=== PATIENT | female | born 1965 | race Hispanic/Latino ===

== ENCOUNTER 2024-08-12 12:50 | Emergency (ER) | payer BC, SELFPAY ==
--- OUTSIDE RECORDS SUMMARY | 2024-08-12 12:57 | XMS REPORT | Continuity of Care Document ---
Author Name Unknown Address [address] [facility] [place] [address] [facility] Address [address] [facility] [address] [place] [address] Care Team Providers Care Sfdc Architect Name Role Phone Gadiel Jenkins MD Primary Care Physician ESTEBAN SUAREZ Attending Clinician Unavailable SARIKA COREAS Attending Clinician Unavailable LAB90 Attending Clinician Unavailable ADELINE ALLEN Attending Clinician Unavailable KAROLYN HERRING Attending Clinician Unavailable MD RHODA Attending Clinician Unavail le Doctor Unassigned, Salome Attending Clinician U navailable JAZMÍN LORA Attending Clinician Unavailable ONDINA BONE Attending Clinician Unavailable FLOYD AREVALO Attending Clinician Unavailable CASSY REEVES Attending Clinician Unavailable LOUISA ANGEL Attending Clinician Unavailable [email or web address] Attending Clinician Unavaila ble RADIOLOGY Attending Clinician Unavailable Radiology Attending Clinician Unavailable Doctor Unassigned, Salome Attending Clinician U navailable GEOFF MCGOVERN Attending Clinician Unavailable Geoff Mcgovern MD Attending Clinician [phone] Annie Dawn MD Attending Clinician GARTH Attending Clinician Unavailable CHANEL ADLER Attending Clinician Unavailable GARCIA WARD Attending Clinician Unavailable Keisha Brennan MD Attending Clinician ANNIE DAWN Attending Clinician Unavailable Nurse, Shady Fam Attending Clinician Unavailable KEISHA BRENNAN Attending Clinician UnavailShady [facility] Main Attending Clinician Unavailabl e [email or web address]_S Admitting Clinician Unavaila KEISHA Recinos A Admitting Clinician Unavaila GEOFF Mederos Admitting Clinician Unavailable GARTH Admitting Clinician Unavailable Payers Payer Name Policy Type Policy Number Effective Date Expirati on Date Source [employer]WORK [id number] 2022 00:00:00 [employer] MP [employer] [employer] 5 O 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 87 ON 9 [id number] 2023 00:00:00 [employer] 2 [id number] 2022 00:00:00 Problems Condition Name Condition Details Condition Category Status Onset Date Resolution Date Last Treatment Date Treating Clinician Comments Source DM type 2 with diabetic mixed hyperlipid emia (multi HCC) DM type 2 with diabetic mixed hyperlipid emia (multi HCC) Disease Active 05-01 00:00: 00 Queenie Seybold - Externa l History of colon polyps History of colon polyps Disease Active 05-01 00:00: 00 Queenie Seybold - Externa l History of diverticul itis History of diverticul itis Disease Active 05-01 00:00: 00 Queenie Seybold - Externa l 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 Disease Active 11-25 00:00: 00 Queenie Seybold - Externa l Anxiety Anxiety Disease Active 11-25 00:00: 00 Queenie Seybold - Externa l Mixed hyperlipid emia Mixed hyperlipid emia Disease Active 11-25 00:00: 00 Queenie Seybold - Externa l Well adult exam Well adult exam Disease Active 08-25 00:00: 00 Queenie Seybold - Externa l Prediabete s Prediabete s Disease Active 08-25 00:00: 00 Queenie Seybold - Externa l Arthralgia of both hands Arthralgia of both hands Disease Active 07-24 00:00: 00 Queenie Rodriguezjusticephyllis - Externa l Class 1 obesity due to excess calories without serious comorbidit y with body mass index (BMI) of 33.0 to 33.9 in adult Class 1 obesity due to excess calories without serious comorbidit y with body mass index (BMI) of 33.0 to 33.9 in adult Disease Active 07-24 00:00: 00 Queenie Lisa - Externa l Acquired hypothyroi dism Acquired hypothyroi dism Disease Active 07-24 00:00: 00 Queenie Sejusticeold - Externa l Class 1 obesity due to excess calories without serious comorbidit y with body mass index (BMI) of 33.0 to 33.9 in adult Class 1 obesity due to excess calories without serious comorbidit y with body mass index (BMI) of 33.0 to 33.9 in adult Disease Active 07-24 00:00: 00 Queenie Maria L - Externa l Gastroesop hageal reflux disease without esophagiti s Gastroesop hageal reflux disease without esophagiti s Disease Active 07-24 00:00: 00 Queenie Maria L - Externa l Obesity (BMI 30-39.9) Obesity (BMI 30-39.9) Disease Active 2018-04 00:00: 00 [facility] Type 2 diabetes mellitus without complicati on Type 2 diabetes mellitus without complicati on Disease Active 2018-04 00:00: 00 Overview: Formattin g of this note might be different from the original. Per Endocrino logy note 03/01/2019 [facility] Tinea pedis of both feet Tinea pedis of both feet Disease Active 2018-04 00:00: 00 [facility] Abnormal liver function tests Abnormal liver function tests Disease Active 2018-04 00:00: 00 [facility] Elevated lipase Elevated lipase Disease Active 2018-04 00:00: 00 [facility] Need for hepatitis A and B vaccinatio n Need for hepatitis A and B vaccinatio n Disease Active 2018-04 00:00: 00 [facility] Medullary sponge kidney Medullary sponge kidney Disease Active 2018-04 0 00:00: 00 [facility] Fatty liver Fatty liver Disease Active 2018-04 0 00:00: 00 [facility] Anxiety Anxiety Disease Active 24 00:00: 00 [facility] Warwick's disease Dick's disease Disease Active 18 00:00: 00 [facility] Hyperchole sterolemia Hyperchole sterolemia Disease Active 2017-04 00:00: 00 [facility] Essential hypertensi on Essential hypertensi on Disease Active 06-11 00:00: 00 [facility] Calculus of both kidneys Calculus of both kidneys Disease Active 06-11 00:00: 00 [facility] Depression Depression Disease Active 2014-04 00:00: 00 [facility] Hypothyroi dism due to acquired atrophy of thyroid Hypothyroi dism due to acquired atrophy of thyroid Disease Active 2014-04 00:00: 00 [facility] Chronic depression Chronic depression Disease Active 2014-04 00:00: 00 [facility] Diabetes Problem Active [facility] Anxiety Anxiety Problem Active [facility] Memory problem Memory problem Problem Active [facility] HTN (hypertens ion) HTN (hypertens ion) Problem Active [facility] Dry mouth Dry mouth Problem Active Com [facility] Primary insomnia Primary insomnia Problem Active [facility] Depression with anxiety Depression with anxiety Problem Active [facility] High cholestero l High cholestero l Problem Active [facility] Kidney stone Kidney stone Problem Active [facility] Stress Stress Problem Active [facility] Acute pain of right knee Acute pain of right knee Problem Active [facility] Routine gynecologi antonio examinatio n Routine gynecologi antonio examinatio n Problem Active [facility] 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 Problem Active [facility] Osteoporos is screening Osteoporos is screening Problem Active [facility] Hemorrhoid s, unspecifie d hemorrhoid type Hemorrhoid s, unspecifie d hemorrhoid type Problem Active [facility] Acquired absence of both cervix and uterus Acquired absence of both cervix and uterus Problem Active [facility] Constipati on, unspecifie d constipati on type Constipati on, unspecifie d constipati on type Problem Active [facility] Concern about breast cancer in female without diagnosis Concern about breast cancer in female without diagnosis Problem Active [facility] Somnolence , daytime Somnolence , daytime Problem Active [facility] Prediabete s Prediabete s Problem Active [facility] Acquired hypothyroi dism Acquired hypothyroi dism Problem Active [facility] Chronic fatigue Chronic fatigue Problem Active [facility] Pain of both breasts Pain of both breasts Problem Active [facility] Prediabete s Prediabete s Disease Resolve d 2018-04 0-30 00:00: 00 2019-03-17 00:00:00 2019-03-17 19:06:54 [facility] Allergies, Adverse Reactions, Alerts Allergy Name Allergy Type Status Severity Reaction(s) Onset Date Inactive Date Treating Clinician Comments Source NO KNOWN ALLERGIE S Drug Class Active [facility] Social History Social Habit Start Date Stop Date Quantity Comments Source ASSERTION Not Queenie Lisa - External History of Occupation Queenie Lisa - External Gender identity [facility] Sexual orientation U [facility] Tobacco use and exposure 2024-01-08 00:00:00 2024-01-08 00:00:00 Smokeless tobacco non-user Queenie Lisa - External Alcohol intake 2023-07-31 00:00:00 2023-07-31 00:00:00 Lifetime non-drinker (finding) Queenie Lisa - External Education 2022-07-24 00:00:00 2022-07-24 00:00:00 15 Queenie Lisa - External Sex 2022-07-01 16:27:54 2022-07-01 16:27:54 Female (finding) Queenie Rodriguezjusticephyllis - External History of Social function 2019-11-27 00:00:00 2019-11-27 00:00:00 [facility] Alcoholic beverage intake 2016-07-15 00:00:00 2016-07-15 00:00:00 0 /d [facility] Sex assigned at 1965 00:00:00 1965 00:00:00 Queenie Senatali - External Smoking Status Start Date Stop Date Source Never smoked tobacco Queenie Senatali - External Medications Ordered Medication Name Filled Medication Name Start Date Stop Date Current Medication? Ordering Clinician Indication Dosage Frequency Signature (SIG) Comments Components Source Dulaglutide (Trulicity) 4.5 MG/0.5ML subcutaneou s Solution Auto-inject or 08-05 00:00: 00 Yes [id number] 3 4.5mg Q1W Inject 4.5 mg into the skin once a week. Queenie abbott Trazodone HCl 50 MG oral Tablet 08-05 00:00: 00 Yes [id number] 50mg QD Take 1 tablet (50 mg total) by mouth nightly. Queenie abbott FLUoxetine HCl 60 MG oral Tablet 08-05 00:00: 00 Yes [id number] 60mg QD Take 60 mg by mouth daily. Queenie abbott Phentermine HCl 37.5 MG oral Tablet 08-05 00:00: 00 Yes [id number] 37.5mg Take 1 tablet (37.5 mg total) by mouth every morning (before breakfast) . Queenie abbott Meloxicam 15 MG oral Tablet 07-13 00:00: 00 Yes [id number] 15mg QD TAKE 1 TABLET BY MOUTH EVERY DAY NEEDED FOR PAIN Queenie abbott Levothyroxi ne Sodium 100 MCG oral Tablet 07-04 00:00: 00 Yes [id number] 100ug QD TAKE 1 TABLET BY MOUTH EVERY DAY Queenie Lisa - Externa l Trulicity 3 MG/0.5ML subcutaneou s Solution Auto-inject or 06-22 00:00: 00 08-05 00:00 :00 No [id number] 3 3mg Q1W Inject 3 mg into the skin once a week. Queenie Lisa - Externa l Phentermine HCl 37.5 MG oral Tablet 06-22 00:00: 00 08-05 00:00 :00 No [id number] 37.5mg Take 1 tablet (37.5 mg total) by mouth every morning (before breakfast) . Queenie Lisa - Externa l hydroCHLORO thiazide 12.5 MG oral Capsule 06-15 00:00: 00 Yes [id number] 12.5mg QD TAKE 1 CAPSULE BY MOUTH EVERY DAY Queenie Lisa - Externa l Meloxicam 15 MG oral Tablet - 00:00: 00 Yes [id number] 15mg QD TAKE 1 TABLET BY MOUTH EVERY DAY NEEDED FOR PAIN Queenie Lisa - Externa l Meloxicam 15 MG oral Tablet 2023-04 00:00: 00 Yes [id number] 15mg QD Take 1 tablet (15 mg total) by mouth daily as needed for pain. Queenie Lisa - Externa l Phentermine HCl 37.5 MG oral Tablet 2023-04 00:00: 00 06-22 00:00 :00 No [id number] 104 37.5mg Take 1 tablet (37.5 mg total) by mouth every morning (before breakfast) . Queenie Lisa - Externa l Trulicity 4.5 MG/0.5ML subcutaneou s Solution Auto-inject or 2023-04 00:00: 00 04-08 00:00 :00 No Queenie Lisa - Externa l Meloxicam 15 MG oral Tablet 2023-04 1- 00:00: 00 04-08 00:00 :00 No [id number] 15mg QD TAKE 1 TABLET BY MOUTH EVERY DAY NEEDED FOR PAIN Queenie Lisa - Externa l Meloxicam 15 MG oral Tablet 2023-04 00:00: 00 Yes [id number] 15mg QD take 1 tablet by mouth every day as needed for pain Queenie abbott FLUTICASONE PROPIONATE, NASAL, 50 MCG/ACT nasal Suspension 01-11 00:00: 00 Yes [id number] 50ug QD Use 1 spray (50 mcg total) in each nostril daily. Queenie abbott Pseudoeph-B romphen-DM 30-2-10 MG/5ML oral Syrup 01-11 00:00: 00 02-28 00:00 :00 No [id number] 10mL Q.25D Take 10 mL by mouth 4 times daily as needed. Queenie abbott Azithromyci n 250 MG oral Tablet 01-11 00:00: 00 01-17 04:59 :00 No [id number] Take 2 tablets by mouth on day 1 then 1 tablet by mouth daily for 4 days thereafter .. Queenie abbott Dulaglutide (Trulicity) 4.5 MG/0.5ML subcutaneou s Solution Pen-injecto r 01-07 00:00: 00 Yes [id number] 3 4.5mg Q1W Inject 4.5 mg into the skin once a week. Queenie abbott hydroCHLORO thiazide 12.5 MG oral Capsule 01-07 00:00: 00 Yes [id number] 12.5mg QD Take 1 capsule (12.5 mg total) by mouth daily. Queenie abbott Fluoxetine HCl 40 MG oral Capsule 01-07 00:00: 00 08-05 00:00 :00 No [id number] 40mg QD Take 1 capsule (40 mg total) by mouth daily. Queenie abbott Dulaglutide (Trulicity) 4.5 MG/0.5ML subcutaneou s Solution Pen-injecto r 01-07 00:00: 00 06-22 00:00 :00 No [id number] 3 4.5mg Q1W Inject 4.5 mg into the skin once a week. Queenie abbott Phentermine HCl 37.5 MG oral Tablet 01-07 00:00: 00 02-28 00:00 :00 No [id number] 104 18.75mg Take 0.5 tablets (18.75 mg total) by mouth every morning (before breakfast) . Queenie abbott Meloxicam 15 MG oral Tablet 12-24 00:00: 00 Yes [id number] 15mg QD take 1 tablet by mouth every day as needed for pain Queenie abbott hydroCHLORO thiazide 12.5 MG oral Capsule 12-20 00:00: 00 01-07 00:00 :00 No [id number] 12.5mg QD TAKE 1 CAPSULE BY MOUTH EVERY DAY Queenie abobtt hydroCHLORO thiazide 12.5 MG oral Capsule 11-25 00:00: 00 Yes [id number] 12.5mg QD Take 1 capsule (12.5 mg total) by mouth daily. Queenie abbott Meloxicam 15 MG oral Tablet 11-25 00:00: 00 Yes [id number] 15mg QD Take 1 tablet (15 mg total) by mouth daily as needed for pain. Queenie abbott Dulaglutide (Trulicity) 4.5 MG/0.5ML subcutaneou s Solution Pen-injecto r 11-25 00:00: 00 01-07 00:00 :00 No [id number] 3 4.5mg Q1W Inject 4.5 mg into the skin once a week. Queenie abbott Fluoxetine HCl 20 MG oral Capsule 11-25 00:00: 00 01-07 00:00 :00 No [id number] 20mg QD Take 1 capsule (20 mg total) by mouth daily. Queenie abbott Phentermine HCl 37.5 MG oral Tablet 11-25 00:00: 00 01-07 00:00 :00 No [id number] 104 18.75mg Take 0.5 tablets (18.75 mg total) by mouth every morning (before breakfast) . Queenie abbott Methylpredn isolone Acetate (DEPO-MEDRO L) 40 mg/mL 11-17 13:02: 26 No [id number] 40mg Queenie Maria L Gautam l Trulicity 3 MG/0.5ML subcutaneou s Solution Pen-injecto r 11-05 00:00: 00 01-07 00:00 :00 No Inject 1 injection into the skin once a week for 4 weeks Queenie abbott Dulaglutide (Trulicity) 4.5 MG/0.5ML subcutaneou s Solution Pen-injecto r 11-05 00:00: 00 11-25 00:00 :00 No [id number] 3 4.5mg Q1W Inject 4.5 mg into the skin once a week. Queenie abbott Methylpredn isolone Acetate (DEPO-MEDRO L) 40 mg/mL 10-29 17:34: 00 No [id number] 40mg 40 mg, injection, ONCE, 1 dose, On Thu10/30/23 at 1630 Queenie abbott Levothyroxi ne Sodium 100 MCG oral Tablet -06 00:00: 00 Yes [id number] 100ug QD Take 1 tablet (100 mcg total) by mouth daily. Queenie abbott Dulaglutide (Trulicity) 3 MG/0.5ML subcutaneou s Solution Pen-injecto r 6-05 00:00: 00 Yes [id number] 3 3mg Q1W Inject 3 mg into the skin once a week. Queenie abbott Dulaglutide (Trulicity) 3 MG/0.5ML subcutaneou s Solution Pen-injecto r 08 00:00: 00 Yes [id number] 3 3mg Inject 3 mg into the skin once a week. Queenie abbott Doxycycline Hyclate 100 MG oral Tablet 08 00:00: 00 02-28 00:00 :00 No [id number] 100mg Q.5D Take 1 tablet (100 mg total) by mouth 2 times daily. Queenie abbott Mupirocin (BACTROBAN) 2 % apply externally Ointment 09-01 00:00: 01-07 00:00 :00 No [id number] 1{appli cation} [id number] 3D Apply 1 Applicatio n topically 3 times daily. Queenie abbott Ketorolac Tromethamin e 10 MG oral Tablet 09-01 00:00: 11-25 00:00 :00 No [id number] 10mg Q.25D Take 1 tablet (10 mg total) by mouth every 6 hours as needed for pain. Queenie abbott FLUoxetine HCl 60 MG oral Tablet 09-01 00:00: 11-25 00:00 :00 No [id number] 1{tbl} QD Take 1 tablet by mouth daily. Queenie abbott Phentermine HCl 37.5 MG oral Tablet 09-01 00:00: 11-25 00:00 :00 No [id number] 104 37.5mg Take 1 tablet (37.5 mg total) by mouth every morning (before breakfast) . Queenie abbott Fluoxetine HCl 40 MG oral Capsule 08-25 00:00: 00 09-01 00:00 :00 No [id number] 40mg TAKE 1 CAPSULE (40 MG TOTAL) BY MOUTH DAILY. Queenie abbott Dulaglutide (Trulicity) 3 MG/0.5ML subcutaneou s Solution Pen-injecto r 08-05 00:00: 00 09-01 00:00 :00 No [id number] 3 3mg Inject 3 mg into the skin once a week. Queenie abbott Trulicity 3 MG/0.5ML subcutaneou s Solution Pen-injecto r 07-30 00:00: 00 Yes [id number] 3 3mg Inject 3 mg into the skin once a week. Queenie abbott Fluoxetine HCl 40 MG oral Capsule 07-30 00:00: 00 Yes [id number] 40mg Take 1 capsule (40 mg total) by mouth daily. Queenie abbott Phentermine HCl 37.5 MG oral Tablet 07-30 00:00: 00 09-01 00:00 :00 No [id number] 104 37.5mg Take 1 tablet (37.5 mg total) by mouth every morning (before breakfast) . Queenie abbott Ketorolac Tromethamin e 10 MG oral Tablet 07-30 00:00: 00 09-01 00:00 :00 No [id number] 10mg Q.25D Take 1 tablet (10 mg total) by mouth every 6 hours as needed for pain. Queenie abbott Fluoxetine HCl 20 MG oral Capsule 07-22 00:00: 00 07-30 00:00 :00 No [id number] 20mg TAKE 1 CAPSULE BY MOUTH EVERY DAY Queenie abbott Trulicity 1.5 MG/0.5ML subcutaneou s Solution Pen-injecto r 07-01 00:00: 00 Yes [id number] 3 1.5mg Inject 1.5 mg into the skin once a week. Queenie abbott Phentermine HCl 15 MG oral Capsule 07-01 00:00: 00 Yes [id number] 15mg Take 1 capsule (15 mg total) by mouth every morning. Queenie abbott Fluoxetine HCl 20 MG oral Capsule 07-01 00:00: 00 Yes [id number] 20mg Take 1 capsule (20 mg total) by mouth daily. Queenie abbott methylPREDN ISolone 4 MG oral Tablet Therapy Pack 07-01 00:00: 00 09-01 00:00 :00 No [id number] 1{arvind} Take 1 arvind by mouth See Admin Instructio ns Use as directed. Queenie abbott Celecoxib (CeleBREX) 200 MG oral Capsule 07-01 00:00: 00 09-01 00:00 :00 No [id number] 200mg Take 1 capsule (200 mg total) by mouth 2 times daily. Queenie abbott Trulicity 0.75 MG/0.5ML subcutaneou s Solution Pen-injecto r 2 00:00: 00 Yes [id number] 3 .75mg Inject 0.75 mg into the skin once a week. Queenie abbott Diclofenac Sodium 75 MG oral Tablet Delayed Response 2 00:00: 00 Yes [id number] 75mg Q.5D Take 1 tablet (75 mg total) by mouth 2 times daily as needed. Queenie abbott Fluoxetine HCl 20 MG oral Capsule 06-11 00:00: 00 Yes [id number] 20mg Take 1 capsule (20 mg total) by mouth daily. Queenie abbott Fluoxetine HCl 10 MG oral Capsule - 00:00: 00 06-11 00:00 :00 No [id number] 10mg Take 1 capsule (10 mg total) by mouth daily. Queenie abbott Metformin HCl 500 MG oral Tablet - 00:00: 00 08 00:00 :00 No [id number] 3 500mg Take 1 tablet (500 mg total) by mouth in the morning and 1 tablet (500 mg total) in the evening. Take with meals. Queenie abbott Fluoxetine HCl 10 MG oral Capsule - 00:00: 00 Yes [id number] 10mg Take 1 capsule (10 mg total) by mouth daily. Queenie abbott Sertraline HCl 50 MG oral Tablet 12-26 00:00: 00 Yes [id number] 50mg Take 1 tablet (50 mg total) by mouth daily. Queenie abbott Metformin HCl 500 MG oral Tablet 12-26 00:00: 00 Yes [id number] 3 500mg Take 1 tablet (500 mg total) by mouth daily (with breakfast) . Queenie abbott OZEMPIC (0.25 or 0.5 mg/dose) 2 mg/3 mL SQ Solution Pen-Injecto r 12-26 00:00: 00 Yes [id number] 3 .25mg Inject 0.25 mg into the skin once a week. Queenie abbott Sertraline HCl 25 MG oral Tablet 12-18 00:00: 00 12-26 00:00 :00 No [id number] 25mg TAKE 1 TABLET (25 MG TOTAL) BY MOUTH DAILY. Queenie abbott metroNIDAZO LE (FLAGYL) tablet 500 mg 12-01 21:00: 00 12-01 20:55 :00 No 500mg 500 mg, Oral, ONCE NOW, 1 dose, On Thu12/01/22 at 1600, JESSICA
Re ason for Anti-Infec tive: Documented Infection< br>Documen venkata Infection Site: Abdominal< br>Duratio n of Therapy: [address] [facility] levoFLOXaci n in D5W (LEVAQUIN) 500 mg/100 mL Piggyback 500 mg 12-01 20:15: 00 12-01 21:57 :00 No 500mg 500 mg, IV Piggyback, ONCE, 1 dose, On Thu12/01/22 at 1515, Administer over 60 Minutes, 100 mL
Reas on for Anti-Infec tive: Documented Infection< br>Documen evnkata Infection Site: Abdominal< br>Duratio n of Therapy: [address] [facility] morpHINE (4 mg/mL) injection 4 mg 12-01 19:30: 00 12-01 18:36 :00 No 4mg 4 mg, Slow IV Push, ONCE, 1 dose, On Thu12/01/22 at 1430, STAT [facility] iopamidol (ISOVUE 370-500 mL) injection 70 mL 12-01 19:24: 00 12-01 19:25 :00 No [id number] 70mL 70 mL, Intravenou s, ONCE, 1 dose, On Thu12/01/22 at 1445, Routine [facility] ketorolac (TORADOL) injection 30 mg 12-01 19:15: 00 12-01 18:37 :00 No 30mg 30 mg, Slow IV Push, ONCE, 1 dose, On Thu12/01/22 at 1415, JESSICA [facility] NaCl 0.9% (NS) bolus infusion 1,000 mL 12-01 19:15: 00 12-01 20:42 :00 No 1000mL at 999 mL/hr, 1,000 mL, IV Piggyback, ONCE, 1 dose, On Thu12/01/22 at 1415, STAT [facility] ondansetron (ZOFRAN (PF)) injection 4 mg 12-01 18:30: 00 12-01 18:35 :00 No 4mg 4 mg, Slow IV Push, ONCE, 1 dose, On Thu12/01/22 at 1330, JESSICA [facility] ondansetron 4 mg disintegrat ing tablet 12-01 00:00: 00 Yes [id number] 4mg Take 1 tablet by mouth every 12 (twelve) hours as needed for Nausea and Vomiting (N/V). [facility] levoFLOXaci n (LEVAQUIN) 500 mg tablet 12-01 00:00: 00 12-12 04:59 :00 No [id number] 500mg Take 1 tablet by mouth daily for [address] [facility] metroNIDAZO LE 500 mg tablet 12-01 00:00: 00 12-12 04:59 :00 No [id number] 500mg Take 1 tablet by mouth 3 (three) times daily for [address] [facility] Metformin HCl 500 MG oral Tablet 11-27 00:00: 00 12-26 00:00 :00 No [id number] 3 500mg Take 1 tablet (500 mg total) by mouth in the morning and 1 tablet (500 mg total) in the evening. Take with meals. Queenie abbott Sertraline HCl 25 MG oral Tablet 11-25 00:00: 00 Yes [id number] 25mg Take 1 tablet (25 mg total) by mouth daily Queenie abbott Levothyroxi ne Sodium 100 MCG oral Tablet 11-25 00:00: 00 Yes [id number] 100ug Take 1 tablet (100 mcg total) by mouth daily Queenie abbott Meloxicam 15 MG oral Tablet 8- 00:00: 00 05-01 00:00 :00 No [id number] 15mg QD Take 1 tablet (15 mg total) by mouth daily as needed for pain Queenie Lina milena predniSONE (DELTASONE) 10 MG oral tablet 18 00:00: 11-25 00:00 :00 No [id number] One pill twice daily for 5 days then one pill daily for 5 days Queenie abbott Meloxicam 15 MG oral Tablet 08-25 00:00: 00 11-25 00:00 :00 No [id number] 15mg QD Take 1 tablet (15 mg total) by mouth daily as needed for pain Queenie Lina milena Lincoln-3 Fatty Acids (Fish Oil) 1000 MG oral Capsule 07 00:00: 00 Yes [id number] 1000mg Q.5D Take 1 capsule (1,000 mg total) by mouth 2 times daily Queenie abbott Pantoprazol e Sodium 40 MG oral Tablet Delayed Response 07-28 00:00: 00 01-07 00:00 :00 No [id number] 40mg QD Take 1 tablet (40 mg total) by mouth daily Queenie Lina milena Levothyroxi ne Sodium 100 MCG oral Tablet 07-24 14:45: 23 07-24 00:00 :00 No 100ug Take 100 mcg by mouth daily Queenie Lina milena Levothyroxi ne Sodium 100 MCG oral Tablet 07-24 00:00: 00 Yes [id number] 100ug Take 1 tablet (100 mcg total) by mouth daily Queenie abbott Meloxicam 15 MG oral Tablet 07-24 00:00: 00 Yes [id number] 15mg QD Take 1 tablet (15 mg total) by mouth daily as needed for pain Queenie Martínez Externa milena Pantoprazol e Sodium 40 MG oral Tablet Delayed Response 07-24 00:00: 00 07-24 00:00 :00 No [id number] 40mg Take 1 tablet (40 mg total) by mouth daily Queenie abbott VENLAFAXINE XR 150 mg 24 hr capsule 09-26 00:00: 00 Yes [id number] 150mg TAKE 1 CAPSULE BY MOUTH DAILY WITH BREAKFAST. [facility] Levothyroxi ne (TIROSINT) 150 mcg capsule 08-28 00:00: 00 Yes [id number] .15mg Take 1 capsule by mouth every morning. [facility] OZEMPIC 1 mg/dose (2 mg/1.5 mL) PnIj 310 00:00: 00 Yes [id number] 1mg inject 1 mg under the skin weekly. [facility] benzonatate 200 mg capsule 06-20 00:00: 00 Yes [id number] 200mg Take 1 capsule by mouth 3 (three) times daily as needed for Cough. [facility] meclizine 25 mg tablet 06-20 00:00: 00 Yes [id number] 25mg Take 1 tablet by mouth 3 (three) times daily as needed for Dizziness. [facility] oseltamivir 75 mg capsule 06-20 00:00: 06-25 05:59 :00 No [id number] 75mg Take 1 capsule by mouth 2 (two) times daily for [address] [facility] HYDROCORTIS ONE 10 mg tablet 06-03 00:00: 00 Yes [id number] TAKE ONE TABLET BY MOUTH EVERY MORNING AND ONE-HALF AT [address] [facility] venlafaxine XR 150 mg 24 hr capsule 2018-04 00:00: 00 Yes [id number] 150mg Take 1 capsule by mouth daily with breakfast. [facility] METFORMIN 500 mg tablet 2018-04 00:00: 00 07-28 00:00 :00 No [id number] TAKE 1 TABLET BY MOUTH EVERY DAY [facility] TIROSINT 150 mcg capsule 2018-04 00:00: 00 08-25 00:00 :00 No [id number] .15mg Take 1 capsule by mouth every morning. [facility] semaglutide (OZEMPIC) 0.25 mg or 0.5 mg(2 mg/1.5 mL) PnIj 2018-04 00:00: 00 07-04 00:00 :00 No [id number] .5mg inject 0.5 mg under the skin weekly. [facility] econazole nitrate 1 % cream 2018-04 00:00: 00 Yes [id number] Apply to area(s) daily. [facility] suvorexant (BELSOMRA) 10 mg Tab 12-03 00:00: 00 Yes [id number] 1{tbl} Take 1 tablet by mouth at bedtime. [facility] venlafaxine XR 75 mg 24 hr capsule 12-03 00:00: 00 Yes [id number] 75mg Take 1 capsule by mouth daily with breakfast. [facility] benzonatate 200 mg capsule 12-03 00:00: 00 Yes [id number] 200mg Take 1 capsule by mouth 3 (three) times daily as needed for Cough. [facility] azithromyci n 250 mg tablet 12-03 00:00: 00 12-09 04:59 :00 No [id number] 2 tabs po Day 1, then 1 tab po daily Days 2-5 [facility] hydrocortis one 10 mg tablet 11-16 00:00: 00 06-03 00:00 :00 No [id number] TAKE ONE TABLET BY MOUTH EVERY MORNING AND ONE-HALF AT [address] [facility] venlafaxine XR 75 mg 24 hr capsule 11-11 00:00: 00 12-03 00:00 :00 No [id number] 75mg Take 1 capsule by mouth daily with breakfast. [facility] Thyroid, Pork, (ARMOUR THYROID) 120 mg tablet 09-16 00:00: 00 Yes 120mg Take 1 tablet by mouth daily. [facility] atorvastati n 40 mg tablet 09-16 00:00: 00 Yes 40mg Take 1 tablet by mouth at bedtime. [facility] metFORMIN 500 mg tablet 5-21 00:00: 00 Yes [id number] 500mg Take 1 tablet by mouth daily. [facility] Cymbalta Cymbalta 9-13 00:00: 00 Yes Na Michaels 1 capsule [facility] hydroCHLORO thiazide 25 mg tablet 8- 00:00: 00 Yes 25mg Take 1 tablet by mouth daily. [facility] diclofenac 75 mg EC tablet 7-11 00:00: 00 Yes 75mg Take 1 tablet by mouth 2 (two) times daily with meals. [facility] meloxicam 7.5 mg tablet 4- 00:00: 00 12-03 00:00 :00 No 7.5mg Take 1 tablet by mouth daily. [facility] Synthroid Synthroid Yes Na Michaels 1 ta blet on an empty stomach in the morning [facility] Immunizations Ordered Immunization Name Filled Immunization Name Date Status Comments Source Pneumococcal Vaccine, Polysaccharide 2022-08-25 00:00:00 Completed [facility] Rodriguezybold - External Pneumococcal Vaccine, Polysaccharide 2022-08-25 00:00:00 Completed [facility] Allisonold - External Pneumococcal Vaccine, Polysaccharide 2022-08-25 00:00:00 Completed Queenie ybold - External MMR- Measles, Mumps, Rubella 2020-11-26 00:00:00 Completed Queenie Seybold - External Varicella Vaccine 2020-11-26 00:00:00 Completed Queenie Seybold - External MMR- Measles, Mumps, Rubella 2020-11-26 00:00:00 Completed Queenie Seybold - External Varicella Vaccine 2020-11-26 00:00:00 Completed Queenie Seybold - External MMR- Measles, Mumps, Rubella 2020-11-26 00:00:00 Completed Queenie Seybold - External Varicella Vaccine 2020-11-26 00:00:00 Completed Queenie Seybold - External MMR- Measles, Mumps, Rubella 2020-11-26 00:00:00 Completed Queenie Seybold - External Varicella Vaccine 2020-11-26 00:00:00 Completed Queenie Seybold - External MMR- Measles, Mumps, Rubella 2020-10-15 00:00:00 Completed Queenie Seybold - External Varicella Vaccine 2020-10-15 00:00:00 Completed Queenie Seybold - External MMR- Measles, Mumps, Rubella 2020-10-15 00:00:00 Completed Queenie Seybold - External Varicella Vaccine 2020-10-15 00:00:00 Completed Queenie Seybold - External MMR- Measles, Mumps, Rubella 2020-10-15 00:00:00 Completed Queenie Seybold - External Varicella Vaccine 2020-10-15 00:00:00 Completed Queenie Seybold - External MMR- Measles, Mumps, Rubella 2020-10-15 00:00:00 Completed Queenie Seybold - External Varicella Vaccine 2020-10-15 00:00:00 Completed Queenie Rodriguezybold - External Influenza, Seasonal, Injectable 2020-10-13 00:00:00 Completed Queenie Allisonold - External Tdap- (Boostrix, Adacel) 2020-10-13 00:00:00 Completed Queenie Seybold - External Influenza, Seasonal, Injectable 2020-10-13 00:00:00 Completed [facility]ie Rodriguezybold - External Tdap- (Boostrix, Adacel) 2020-10-13 00:00:00 Completed Queenie Seybold - External Influenza, Seasonal, Injectable 2020-10-13 00:00:00 Completed Queenie Rodriguezybold - External Tdap- (Boostrix, Adacel) 2020-10-13 00:00:00 Completed Queenie Rodriguezybold - External Influenza, Seasonal, Injectable 2020-10-13 00:00:00 Completed Queenie Rodriguezybold - External Tdap- (Boostrix, Adacel) 2020-10-13 00:00:00 Completed Queenie Lisa - External SARS-COV-2 COVID-19 MODERNA 12+ YRS VACCINE 2020-07-22 00:00:00 Completed [facility] SARS-COV-2 COVID-19 MODERNA 12+ YRS VACCINE 2020-07-22 00:00:00 Completed [facility] SARS-COV-2 COVID-19 MODERNA 12+ YRS VACCINE 2020-06-24 00:00:00 Completed [facility] SARS-COV-2 COVID-19 MODERNA 12+ YRS VACCINE 2020-06-24 00:00:00 Completed [facility] Hep A/ Hep B Combo 2019-09-02 00:00:00 Completed Queenie Seybold - External Hep A/ Hep B Combo 2019-09-02 00:00:00 Completed Queenie Seybold - External Hep A/ Hep B Combo 2019-09-02 00:00:00 Completed Queenie Seybold - External Hep A/ Hep B Combo 2019-09-02 00:00:00 Completed Queenie Seybold - External Twinrix (hep a/hep b) 2019-09-02 00:00:00 Completed [facility] Twinrix (hep a/hep b) 2019-09-02 00:00:00 Completed [facility] Twinrix (hep a/hep b) 2019-09-02 00:00:00 Completed [facility] Twinrix (hep a/hep b) 2019-09-02 00:00:00 Completed [facility] Twinrix (hep a/hep b) 2019-09-02 00:00:00 Completed [facility] Twinrix (hep a/hep b) 2019-09-02 00:00:00 Completed [facility] Hep A/ Hep B Combo 2019-04-01 00:00:00 Completed Queenie Seybold - External Hep A/ Hep B Combo 2019-04-01 00:00:00 Completed Queenie Seybold - External Hep A/ Hep B Combo 2019-04-01 00:00:00 Completed Queenie Seybold - External Hep A/ Hep B Combo 2019-04-01 00:00:00 Completed Queenie Seybold - External Twinrix (hep a/hep b) 2019-04-01 00:00:00 Completed [facility] Twinrix (hep a/hep b) 2019-04-01 00:00:00 Completed [facility] Twinrix (hep a/hep b) 2019-04-01 00:00:00 Completed [facility] Twinrix (hep a/hep b) 2019-04-01 00:00:00 Completed [facility] Twinrix (hep a/hep b) 2019-04-01 00:00:00 Completed [facility] Twinrix (hep a/hep b) 2019-04-01 00:00:00 Completed [facility] Twinrix (hep a/hep b) 2019-04-01 00:00:00 Completed [facility] Twinrix (hep a/hep b) 2019-04-01 00:00:00 Completed [facility] Twinrix (hep a/hep b) 2019-04-01 00:00:00 Completed [facility] Twinrix (hep a/hep b) 2019-04-01 00:00:00 Completed [facility] Twinrix (hep a/hep b) 2019-04-01 00:00:00 Completed [facility] Twinrix (hep a/hep b) 2019-04-01 00:00:00 Completed [facility] Twinrix (hep a/hep b) 2019-04-01 00:00:00 Completed [facility] Twinrix (hep a/hep b) 2019-04-01 00:00:00 Completed [facility] Twinrix (hep a/hep b) 2019-04-01 00:00:00 Completed [facility] Twinrix (hep a/hep b) 2019-04-01 00:00:00 Completed [facility] Twinrix (hep a/hep b) 2019-04-01 00:00:00 Completed [facility] Twinrix (hep a/hep b) 2019-04-01 00:00:00 Completed [facility] Pneumococcal Vaccine, Polysaccharide 2019-03-17 00:00:00 Completed Queenie Seybold - External Tdap- (Boostrix, Adacel) 2019-03-17 00:00:00 Completed Queenie Seybold - External Pneumococcal Vaccine, Polysaccharide 2019-03-17 00:00:00 Completed Queenie Seybold - External Tdap- (Boostrix, Adacel) 2019-03-17 00:00:00 Completed Queenie Seybold - External Pneumococcal Vaccine, Polysaccharide 2019-03-17 00:00:00 Completed Queenie Seybold - External Tdap- (Boostrix, Adacel) 2019-03-17 00:00:00 Completed [facility]ie Rodriguezjusticephyllis - External Pneumococcal Vaccine, Polysaccharide 2019-03-17 00:00:00 Completed Queenie Rodriguezjusticephyllis - External Tdap- (Boostrix, Adacel) 2019-03-17 00:00:00 Completed Queenie Allisonold - External TDAP (ADACEL) VACCINE 2019-03-17 00:00:00 Completed [facility] Pneumococcal Polysaccharide, PPSV23 (PNEUMOVAX) 2019-03-17 00:00:00 Completed [facility] TDAP (ADACEL) VACCINE 2019-03-17 00:00:00 Completed [facility] Pneumococcal Polysaccharide, PPSV23 (PNEUMOVAX) 2019-03-17 00:00:00 Completed [facility] TDAP (ADACEL) VACCINE 2019-03-17 00:00:00 Completed [facility] Pneumococcal Polysaccharide, PPSV23 (PNEUMOVAX) 2019-03-17 00:00:00 Completed [facility] TDAP (ADACEL) VACCINE 2019-03-17 00:00:00 Completed [facility] Pneumococcal Polysaccharide, PPSV23 (PNEUMOVAX) 2019-03-17 00:00:00 Completed [facility] TDAP (ADACEL) VACCINE 2019-03-17 00:00:00 Completed [facility] Pneumococcal Polysaccharide, PPSV23 (PNEUMOVAX) 2019-03-17 00:00:00 Completed [facility] TDAP (ADACEL) VACCINE 2019-03-17 00:00:00 Completed [facility] Pneumococcal Polysaccharide, PPSV23 (PNEUMOVAX) 2019-03-17 00:00:00 Completed [facility] TDAP (ADACEL) VACCINE 2019-03-17 00:00:00 Completed [facility] Pneumococcal Polysaccharide, PPSV23 (PNEUMOVAX) 2019-03-17 00:00:00 Completed [facility] TDAP (ADACEL) VACCINE 2019-03-17 00:00:00 Completed [facility] Pneumococcal Polysaccharide, PPSV23 (PNEUMOVAX) 2019-03-17 00:00:00 Completed [facility] TDAP (ADACEL) VACCINE 2019-03-17 00:00:00 Completed [facility] Pneumococcal Polysaccharide, PPSV23 (PNEUMOVAX) 2019-03-17 00:00:00 Completed [facility] TDAP (ADACEL) VACCINE 2019-03-17 00:00:00 Completed [facility] Pneumococcal Polysaccharide, PPSV23 (PNEUMOVAX) 2019-03-17 00:00:00 Completed [facility] TDAP (ADACEL) VACCINE 2019-03-17 00:00:00 Completed [facility] Pneumococcal Polysaccharide, PPSV23 (PNEUMOVAX) 2019-03-17 00:00:00 Completed [facility] TDAP (ADACEL) VACCINE 2019-03-17 00:00:00 Completed [facility] Pneumococcal Polysaccharide, PPSV23 (PNEUMOVAX) 2019-03-17 00:00:00 Completed [facility] TDAP (ADACEL) VACCINE 2019-03-17 00:00:00 Completed [facility] Pneumococcal Polysaccharide, PPSV23 (PNEUMOVAX) 2019-03-17 00:00:00 Completed [facility] TDAP (ADACEL) VACCINE 2019-03-17 00:00:00 Completed [facility] Pneumococcal Polysaccharide, PPSV23 (PNEUMOVAX) 2019-03-17 00:00:00 Completed [facility] TDAP (ADACEL) VACCINE 2019-03-17 00:00:00 Completed [facility] Pneumococcal Polysaccharide, PPSV23 (PNEUMOVAX) 2019-03-17 00:00:00 Completed [facility] TDAP (ADACEL) VACCINE 2019-03-17 00:00:00 Completed [facility] Pneumococcal Polysaccharide, PPSV23 (PNEUMOVAX) 2019-03-17 00:00:00 Completed [facility] TDAP (ADACEL) VACCINE 2019-03-17 00:00:00 Completed [facility] Pneumococcal Polysaccharide, PPSV23 (PNEUMOVAX) 2019-03-17 00:00:00 Completed [facility] TDAP (ADACEL) VACCINE 2019-03-17 00:00:00 Completed [facility] Pneumococcal Polysaccharide, PPSV23 (PNEUMOVAX) 2019-03-17 00:00:00 Completed [facility] Influenza Virus Vaccine, Unspecified Formulation 2019-03-01 00:00:00 Completed Queenie Seybold - External Influenza Virus Vaccine, No Preserv, age 6 months and up 2019-03-01 00:00:00 Completed Queenie Seybold - External Hep A/ Hep B Combo 2019-03-01 00:00:00 Completed Queenie Seybold - External Influenza Virus Vaccine, Unspecified Formulation 2019-03-01 00:00:00 Completed Queenie Seybold - External Influenza Virus Vaccine, No Preserv, age 6 months and up 2019-03-01 00:00:00 Completed Queenie Seybold - External Hep A/ Hep B Combo 2019-03-01 00:00:00 Completed Queenie Seybold - External Influenza Virus Vaccine, Unspecified Formulation 2019-03-01 00:00:00 Completed Queenie Seybold - External Influenza Virus Vaccine, No Preserv, age 6 months and up 2019-03-01 00:00:00 Completed Queenie Seybold - External Hep A/ Hep B Combo 2019-03-01 00:00:00 Completed Queenie Seybold - External Influenza Virus Vaccine, Unspecified Formulation 2019-03-01 00:00:00 Completed Queenie Seybold - External Influenza Virus Vaccine, No Preserv, age 6 months and up 2019-03-01 00:00:00 Completed Queenie Seybold - External Hep A/ Hep B Combo 2019-03-01 00:00:00 Completed Queenie Seybold - External Twinrix (hep a/hep b) 2019-03-01 00:00:00 Completed [facility] Influenza Virus Vaccine Quad .5 mL IM 6+ MO 2019-03-01 00:00:00 Completed [facility] Twinrix (hep a/hep b) 2019-03-01 00:00:00 Completed [facility] Influenza Virus Vaccine Quad .5 mL IM 6+ MO 2019-03-01 00:00:00 Completed [facility] Twinrix (hep a/hep b) 2019-03-01 00:00:00 Completed [facility] Influenza Virus Vaccine Quad .5 mL IM 6+ MO 2019-03-01 00:00:00 Completed [facility] Twinrix (hep a/hep b) 2019-03-01 00:00:00 Completed [facility] Influenza Virus Vaccine Quad .5 mL IM 6+ MO 2019-03-01 00:00:00 Completed [facility] Twinrix (hep a/hep b) 2019-03-01 00:00:00 Completed [facility] Influenza Virus Vaccine Quad .5 mL IM 6+ MO 2019-03-01 00:00:00 Completed [facility] Twinrix (hep a/hep b) 2019-03-01 00:00:00 Completed [facility] Influenza Virus Vaccine Quad .5 mL IM 6+ MO 2019-03-01 00:00:00 Completed [facility] Twinrix (hep a/hep b) 2019-03-01 00:00:00 Completed [facility] Influenza Virus Vaccine Quad .5 mL IM 6+ MO 2019-03-01 00:00:00 Completed [facility] Twinrix (hep a/hep b) 2019-03-01 00:00:00 Completed [facility] Influenza Virus Vaccine Quad .5 mL IM 6+ MO 2019-03-01 00:00:00 Completed [facility] Twinrix (hep a/hep b) 2019-03-01 00:00:00 Completed [facility] Influenza Virus Vaccine Quad .5 mL IM 6+ MO 2019-03-01 00:00:00 Completed [facility] Twinrix (hep a/hep b) 2019-03-01 00:00:00 Completed [facility] Influenza Virus Vaccine Quad .5 mL IM 6+ MO 2019-03-01 00:00:00 Completed [facility] Twinrix (hep a/hep b) 2019-03-01 00:00:00 Completed [facility] Influenza Virus Vaccine Quad .5 mL IM 6+ MO 2019-03-01 00:00:00 Completed [facility] Twinrix (hep a/hep b) 2019-03-01 00:00:00 Completed [facility] Influenza Virus Vaccine Quad .5 mL IM 6+ MO 2019-03-01 00:00:00 Completed [facility] Twinrix (hep a/hep b) 2019-03-01 00:00:00 Completed [facility] Influenza Virus Vaccine Quad .5 mL IM 6+ MO 2019-03-01 00:00:00 Completed [facility] Twinrix (hep a/hep b) 2019-03-01 00:00:00 Completed [facility] Influenza Virus Vaccine Quad .5 mL IM 6+ MO 2019-03-01 00:00:00 Completed [facility] Twinrix (hep a/hep b) 2019-03-01 00:00:00 Completed [facility] Influenza Virus Vaccine Quad .5 mL IM 6+ MO 2019-03-01 00:00:00 Completed [facility] Twinrix (hep a/hep b) 2019-03-01 00:00:00 Completed [facility] Influenza Virus Vaccine Quad .5 mL IM 6+ MO 2019-03-01 00:00:00 Completed [facility] Twinrix (hep a/hep b) 2019-03-01 00:00:00 Completed [facility] Influenza Virus Vaccine Quad .5 mL IM 6+ MO 2019-03-01 00:00:00 Completed [facility] Twinrix (hep a/hep b) 2019-03-01 00:00:00 Completed [facility] Influenza Virus Vaccine Quad .5 mL IM 6+ MO 2019-03-01 00:00:00 Completed [facility] Influenza, Seasonal, Injectable, Preservative Free 2018-02-09 00:00:00 Completed Queenie Seybold - External Influenza, Seasonal, Injectable, Preservative Free 2018-02-09 00:00:00 Completed Queenie Seybold - External Influenza, Seasonal, Injectable, Preservative Free 2018-02-09 00:00:00 Completed Queenie Seybold - External Influenza Virus Vaccine, Unspecified Formulation 2015-02-21 00:00:00 Completed Queenie Seybold - External Influenza Virus Vaccine, Intradermal, 18-64 Yrs 2015-02-21 00:00:00 Completed Queenie Seybold - External Influenza Virus Vaccine, Unspecified Formulation 2015-02-21 00:00:00 Completed Queenie Seybold - External Influenza Virus Vaccine, Intradermal, 18-64 Yrs 2015-02-21 00:00:00 Completed Queenie Seybold - External Influenza Virus Vaccine, Unspecified Formulation 2015-02-21 00:00:00 Completed Queenie Seybold - External Influenza Virus Vaccine, Intradermal, 18-64 Yrs 2015-02-21 00:00:00 Completed Queenie Seybold - External Influenza Virus Vaccine, Unspecified Formulation 2015-02-21 00:00:00 Completed Queenie Lisa - External Influenza Virus Vaccine, Intradermal, 18-64 Yrs 2015-02-21 00:00:00 Completed Queenie Lisa - External Influenza Virus Vaccine Quad ID 18-64 YRS 2015-02-21 00:00:00 Completed [facility] Influenza Virus Vaccine Quad ID 18-64 YRS 2015-02-21 00:00:00 Completed [facility] Influenza Virus Vaccine Quad ID 18-64 YRS 2015-02-21 00:00:00 Completed [facility] Influenza Virus Vaccine Quad ID 18-64 YRS 2015-02-21 00:00:00 Completed [facility] Influenza Virus Vaccine Quad ID 18-64 YRS 2015-02-21 00:00:00 Completed [facility] Influenza Virus Vaccine Quad ID 18-64 YRS 2015-02-21 00:00:00 Completed [facility] Influenza Virus Vaccine Quad ID 18-64 YRS 2015-02-21 00:00:00 Completed [facility] Influenza Virus Vaccine Quad ID 18-64 YRS 2015-02-21 00:00:00 Completed [facility] Influenza Virus Vaccine Quad ID 18-64 YRS 2015-02-21 00:00:00 Completed [facility] Influenza Virus Vaccine Quad ID 18-64 YRS 2015-02-21 00:00:00 Completed [facility] Influenza Virus Vaccine Quad ID 18-64 YRS 2015-02-21 00:00:00 Completed [facility] Influenza Virus Vaccine Quad ID 18-64 YRS 2015-02-21 00:00:00 Completed [facility] Influenza Virus Vaccine Quad ID 18-64 YRS 2015-02-21 00:00:00 Completed [facility] Influenza Virus Vaccine Quad ID 18-64 YRS 2015-02-21 00:00:00 Completed [facility] Influenza Virus Vaccine Quad ID 18-64 YRS 2015-02-21 00:00:00 Completed [facility] Influenza Virus Vaccine Quad ID 18-64 YRS 2015-02-21 00:00:00 Completed [facility] Influenza Virus Vaccine Quad ID 18-64 YRS 2015-02-21 00:00:00 Completed [facility] Influenza Virus Vaccine Quad ID 18-64 YRS 2015-02-21 00:00:00 Completed [facility] Influenza Virus Vaccine Quad ID 18-64 YRS 2015-02-21 00:00:00 Completed [facility] Influenza Virus Vaccine Quad ID 18-64 YRS 2015-02-21 00:00:00 Completed [facility] Influenza Virus Vaccine Quad ID 18-64 YRS 2015-02-21 00:00:00 Completed [facility] Influenza Virus Vaccine Quad ID 18-64 YRS 2015-02-21 00:00:00 Completed [facility] Influenza Virus Vaccine, Unspecified Formulation Unknown Completed Queenie Seybold - External Influenza, Seasonal, Injectable Unknown Completed Queenie Seybold - External Hep A/ Hep B Combo Unknown Completed [place] Seybold - External Influenza Virus Vaccine, No Preserv, age 6 months and up Unknown Completed Queenie S eybold - External Influenza Virus Vaccine, Intradermal, 18-64 Yrs Unknown Completed Queenie Seybold - External MMR- Measles, Mumps, Rubella Unknown Completed Queenie Seybold - External Pneumococcal Vaccine, Polysaccharide Unknown Completed Queenie Seybol d - External Tdap- (Boostrix, Adacel) Unknown Completed Queenie Seybold - External Varicella Vaccine Unknown Completed Alexandre lsey Seybold - External Influenza, Seasonal, Injectable, Preservative Free Unknown Completed Queenie Rodriguezabi bold - External Shingles IM (Shingrix) Unknown Completed Queenie Seybold - External Influenza Virus Vaccine, Unspecified Formulation Unknown Completed Queenie Seybold - External Influenza, Seasonal, Injectable Unknown Completed Queenie Seybold - External Hep A/ Hep B Combo Unknown Completed [place] Seybold - External Influenza Virus Vaccine, No Preserv, age 6 months and up Unknown Completed Queenie S eybold - External Influenza Virus Vaccine, Intradermal, 18-64 Yrs Unknown Completed Queenie Seybold - External MMR- Measles, Mumps, Rubella Unknown Completed Queenie Seybold - External Pneumococcal Vaccine, Polysaccharide Unknown Completed Queenie Seybol d - External Tdap- (Boostrix, Adacel) Unknown Completed Queenie Seybold - External Varicella Vaccine Unknown Completed Ke lsey Seybold - External Influenza, Seasonal, Injectable, Preservative Free Unknown Completed Queenie Sey bold - External Shingles IM (Shingrix) Unknown Completed Queenie Seybold - External Influenza Virus Vaccine, Unspecified Formulation Unknown Completed Queenie Seybold - External Influenza, Seasonal, Injectable Unknown Completed Queenie Rodriguezybold - External Hep A/ Hep B Combo Unknown Completed [place] Allisonold - External Influenza Virus Vaccine, No Preserv, age 6 months and up Unknown Completed Queenie Griffith eybold - External Influenza Virus Vaccine, Intradermal, 18-64 Yrs Unknown Completed Queenie Rodriguezybold - External MMR- Measles, Mumps, Rubella Unknown Completed Queenie Rodriguezybold - External Pneumococcal Vaccine, Polysaccharide Unknown Completed Queenie Rodriguezybol d - External Tdap- (Boostrix, Adacel) Unknown Completed Queenie Rodriguezybold - External Varicella Vaccine Unknown Completed Alexandre hawkey Seybold - External Influenza, Seasonal, Injectable, Preservative Free Unknown Completed Queenie Rodgers bold - External Shingles IM (Shingrix) Unknown Completed Queenie Rodriguezybold - External Influenza Virus Vaccine, Unspecified Formulation Unknown Completed Queenie Seybold - External Influenza, Seasonal, Injectable Unknown Completed Queenie Rodriguezybold - External Hep A/ Hep B Combo Unknown Completed [place] Seybold - External Influenza Virus Vaccine, No Preserv, age 6 months and up Unknown Completed Queenie Griffith eybold - External Influenza Virus Vaccine, Intradermal, 18-64 Yrs Unknown Completed Queenie Rodriguezybold - External MMR- Measles, Mumps, Rubella Unknown Completed Queenie Allisonold - External Pneumococcal Vaccine, Polysaccharide Unknown Completed Queenie Allisonol d - External Tdap- (Boostrix, Adacel) Unknown [facility] - External Varicella Vaccine Unknown Completed Alexandre grewal Seybold - External Influenza, Seasonal, Injectable, Preservative Free Unknown Completed Queenie tran - External Shingles IM (Shingrix) Unknown Completed Queenie Rodriguezybold - External Influenza Virus Vaccine, Unspecified Formulation Unknown Completed Queenie Seybold - External Influenza, Seasonal, Injectable Unknown Completed Queenie Rodriguezybold - External Hep A/ Hep B Combo Unknown Completed [place] Seybold - External Influenza Virus Vaccine, No Preserv, age 6 months and up Unknown Completed Queenie Griffith eybold - External Influenza Virus Vaccine, Intradermal, 18-64 Yrs Unknown Completed Queenie Rodriguezybold - External MMR- Measles, Mumps, Rubella Unknown Completed Queenie Rodriguezybold - External Pneumococcal Vaccine, Polysaccharide Unknown Completed Queenie Rodriguezybol d - External Tdap- (Boostrix, Adacel) Unknown Completed Queenie Seybold - External Varicella Vaccine Unknown Completed Alexandre lsey Seybold - External Influenza, Seasonal, Injectable, Preservative Free Unknown Completed Queenie Rodgers bold - External Shingles IM (Shingrix) Unknown Completed Queenie Seybold - External Influenza Virus Vaccine, Unspecified Formulation Unknown Completed Queenie Seybold - External Influenza, Seasonal, Injectable Unknown Completed Queenie Seybold - External Hep A/ Hep B Combo Unknown Completed Chino torres Seybold - External Influenza Virus Vaccine, No Preserv, age 6 months and up Unknown Completed Queenie S eybold - External Influenza Virus Vaccine, Intradermal, 18-64 Yrs Unknown Completed Queenie Seybold - External MMR- Measles, Mumps, Rubella Unknown Completed Queenie Seybold - External Pneumococcal Vaccine, Polysaccharide Unknown Completed Queenie Seybol d - External Tdap- (Boostrix, Adacel) Unknown Completed Queenie Seybold - External Varicella Vaccine Unknown Completed Alexandre hawkey Seybold - External Influenza, Seasonal, Injectable, Preservative Free Unknown Completed Queenie Rodgers bold - External Shingles IM (Shingrix) Unknown Completed Queenie Seybold - External Influenza Virus Vaccine, Unspecified Formulation Unknown Completed Queenie Seybold - External Influenza, Seasonal, Injectable Unknown Completed Queenie Seybold - External Hep A/ Hep B Combo Unknown Completed [place] torres Seybold - External Influenza Virus Vaccine, No Preserv, age 6 months and up Unknown Completed Queenie huangbold - External Influenza Virus Vaccine, Intradermal, 18-64 Yrs Unknown Completed Queenie Rodriguezybold - External MMR- Measles, Mumps, Rubella Unknown Completed Queenie Seybold - External Pneumococcal Vaccine, Polysaccharide Unknown Completed Queenie Seybol d - External Tdap- (Boostrix, Adacel) Unknown Completed Queenie Seybold - External Varicella Vaccine Unknown Completed Alexandre hawkey Seybold - External Influenza, Seasonal, Injectable, Preservative Free Unknown Completed Queenie Rodgers bold - External Shingles IM (Shingrix) Unknown Completed Queenie Seybold - External Influenza Virus Vaccine, Unspecified Formulation Unknown Completed Queenie Seybold - External Influenza, Seasonal, Injectable Unknown Completed Queenie Seybold - External Hep A/ Hep B Combo Unknown Completed [place] torres Seybold - External Influenza Virus Vaccine, No Preserv, age 6 months and up Unknown Completed Queenie S eybold - External Influenza Virus Vaccine, Intradermal, 18-64 Yrs Unknown Completed Queenie Seybold - External MMR- Measles, Mumps, Rubella Unknown Completed Queenie Seybold - External Pneumococcal Vaccine, Polysaccharide Unknown Completed Queenie Rodriguezybol d - External Tdap- (Boostrix, Adacel) Unknown Completed Queenie Seybold - External Varicella Vaccine Unknown Completed Alexandre hawkey Seybold - External Influenza, Seasonal, Injectable, Preservative Free Unknown Completed Queenie Rodgers bold - External Shingles IM (Shingrix) Unknown Completed Queenie Seybold - External Influenza Virus Vaccine, Unspecified Formulation Unknown Completed Queenie Seybold - External Influenza, Seasonal, Injectable Unknown Completed Queenie Seybold - External Hep A/ Hep B Combo Unknown Completed [place] torres Seybold - External Influenza Virus Vaccine, No Preserv, age 6 months and up Unknown Completed Queenie Griffith eybold - External Influenza Virus Vaccine, Intradermal, 18-64 Yrs Unknown Completed Queenie Rodriguezybold - External MMR- Measles, Mumps, Rubella Unknown Completed Queenie Seybold - External Pneumococcal Vaccine, Polysaccharide Unknown Completed Queenie Rodriguezybol d - External Tdap- (Boostrix, Adacel) Unknown Completed Queenie Rodriguezybold - External Varicella Vaccine Unknown Completed Alexandre grewal Seybold - External Influenza, Seasonal, Injectable, Preservative Free Unknown Completed Queenie Rodgers bold - External Shingles IM (Shingrix) Unknown Completed Queenie Rodriguezybold - External Influenza Virus Vaccine, Unspecified Formulation Unknown Completed Queenie Seybold - External Influenza, Seasonal, Injectable Unknown Completed Queenie Rodriguezybold - External Hep A/ Hep B Combo Unknown Completed [place] torres Seybold - External Influenza Virus Vaccine, No Preserv, age 6 months and up Unknown Completed Queenie Griffith eybold - External Influenza Virus Vaccine, Intradermal, 18-64 Yrs Unknown Completed Queenie Seybold - External MMR- Measles, Mumps, Rubella Unknown Completed Queenie Seybold - External Pneumococcal Vaccine, Polysaccharide Unknown Completed Queenie Seybol d - External Tdap- (Boostrix, Adacel) Unknown Completed Queenie Seybold - External Varicella Vaccine Unknown Completed Alexandre hawkey Seybold - External Influenza, Seasonal, Injectable, Preservative Free Unknown Completed Queenie Rodgers bold - External Shingles IM (Shingrix) Unknown Completed Queenie Seybold - External Influenza Virus Vaccine, Unspecified Formulation Unknown Completed Queenie Seybold - External AFLURIA TRIVALENT MDV Unknown Completed Queenie Seybold - External Hep A/ Hep B Combo Unknown Completed Ch[place] torres Seybold - External Influenza Virus Vaccine, No Preserv, age 6 months and up Unknown Completed Queenie S eybold - External Influenza Virus Vaccine, Intradermal, 18-64 Yrs Unknown Completed Queenie Seybold - External MMR- Measles, Mumps, Rubella Unknown Completed Queenie Seybold - External Pneumococcal Vaccine, Polysaccharide Unknown Completed Queenie Seybol d - External Tdap- (Boostrix, Adacel) Unknown Completed Queenie Seybold - External Varicella Vaccine Unknown Completed Alexandre lsey Seybold - External AFLURIA TRIVALENT PF(0.5mL) Unknown Completed Queenie Seybold - External Shingles IM (Shingrix) Unknown Completed Queenie Seybold - External Influenza Virus Vaccine, Unspecified Formulation Unknown Completed Queenie Seybold - External AFLURIA TRIVALENT MDV Unknown Completed Queenie Seybold - External Hep A/ Hep B Combo Unknown Completed [place] torres Seybold - External Influenza Virus Vaccine, No Preserv, age 6 months and up Unknown Completed Queenie Griffith eybold - External Influenza Virus Vaccine, Intradermal, 18-64 Yrs Unknown Completed Queenie Rodriguezybold - External MMR- Measles, Mumps, Rubella Unknown Completed Queenie Rodriguezybold - External Pneumococcal Vaccine, Polysaccharide Unknown Completed Queenie Rodriguezybol d - External Tdap- (Boostrix, Adacel) Unknown Completed Queenie Rodriguezybold - External Varicella Vaccine Unknown Completed Alexandre grewal Seybold - External AFLURIA TRIVALENT PF(0.5mL) Unknown Completed Queenie Seybold - External Shingles IM (Shingrix) Unknown Completed Queenie Seybold - External Influenza Virus Vaccine, Unspecified Formulation Unknown Completed Queenie Seybold - External AFLURIA TRIVALENT MDV Unknown Completed Queenie Seybold - External Hep A/ Hep B Combo Unknown Completed Chino torres Seybold - External Influenza Virus Vaccine, No Preserv, age 6 months and up Unknown Completed Queenie S eybold - External Influenza Virus Vaccine, Intradermal, 18-64 Yrs Unknown Completed Queenie Seybold - External MMR- Measles, Mumps, Rubella Unknown Completed [facility] - External Pneumococcal Vaccine, Polysaccharide Unknown [facility] Tdap- (Boostrix, Adacel) Unknown [facility] Var[facility] Vaccine Unknown Completed Alexandre grewal Seybold - External AFLURIA TRIVALENT PF(0.5mL) Unknown Completed Queenie Seold - External Shingles IM (Shingrix) Unknown Completed [facility] - External Influenza Virus Vaccine, Unspecified Formulation Unknown Completed [facility] - External AFLURIA TRIVALENT MDV Unknown Completed [facility] - External Hep A/ Hep B Combo Unknown [facility] Vaccine, No Preserv, age 6 months and up Unknown [facility] Influ[facility] Virus Vaccine, Intradermal, 18-64 Yrs Unknown Completed [facility] - External MMR- Measles, Mumps, Rubella Unknown Completed [facility] - External Pneumococcal Vaccine, Polysaccharide Unknown Com[facility] - [facility] Tdap- (Boostrix, Adacel) Unknown Completed [facility] - External Varicella Vaccine Unknown [facility] AFLURIA TRIVALENT PF(0.5mL) Unknown Completed [facility] - External Shingles IM (Shingrix) Unknown Completed [facility] External Influenza Virus Vaccine, Unspecified Formulation Unknown Completed [facility] - External AFLURIA TRIVALENT MDV Unknown Completed [facility] - External Hep A/ Hep B Combo Unknown Completed [place] torres [facility] - External Influenza Virus Vaccine Quad ID [id number] YRS Unknown Completed [facility] Influenza Virus Vaccine, No Preserv, age 6 months and up Unknown Completed [facility] - External Twinrix (hep a/hep b) Unknown Completed [facility] Influenza Virus Vaccine, Intradermal, 18-64 Yrs Unknown Completed [facility] - External Influenza Virus Vaccine Quad .5 mL IM 6+ MO (FLUZONE/FLULAVAL/FL UARIX) Unknown Completed [facility] MMR- Measles, Mumps, Rubella Unknown Completed [facility] - External TDAP (ADACEL) VACCINE Unknown Completed [facility] Pneumococcal Vaccine, Polysaccharide Unknown Com[facility] Pneumococcal Polysaccharide, PPSV23 (PNEUMOVAX) Unknown Completed [facility] Tdap- (Boostrix, Adacel) Unknown Completed Queenie ybold - External SARS-COV-2 COVID-19 MODERNA 12+ YRS VACCINE Unknown Completed [facility] Varicella Vaccine Unknown Completed Alexandre hawkey Seybold - External Influenza Virus Vaccine Quad ID [id number] YRS Unknown Completed [facility] AFLURIA TRIVALENT PF(0.5mL) Unknown Com[facility] Twinrix (hep a/hep b) Unknown Completed [facility] Shingles IM (Shingrix) Unknown Completed Queenie Seold - External Influenza Virus Vaccine Quad .5 mL IM 6+ MO (FLUZONE/FLULAVAL/FL UARIX) Unknown Completed [facility] Influenza Virus Vaccine, Unspecified Formulation Unknown Completed Queenie Seold - External AFLURIA TRIVALENT MDV Unknown Completed Queenie Seold - External TDAP (ADACEL) VACCINE Unknown Completed [facility] Hep A/ Hep B Combo Unknown Completed Chino Lisa - External Pneumococcal Polysaccharide, PPSV23 (PNEUMOVAX) Unknown Completed [facility] Influenza Virus Vaccine, No Preserv, age 6 months and up Unknown Completed Queenie Griffith reinabold - External SARS-COV-2 COVID-19 MODERNA 12+ YRS VACCINE Unknown Completed [facility] Influenza Virus Vaccine, Intradermal, 18-64 Yrs Unknown Completed Queenie phyllis - External MMR- Measles, Mumps, Rubella Unknown Completed Queenie [facility] - External Pneumococcal Vaccine, Polysaccharide Unknown Completed Queenie Chavez d - External Tdap- (Boostrix, Adacel) Unknown Completed Queenie ybold - External Varicella Vaccine Unknown Completed Alexandre grewal ybold - External AFLURIA TRIVALENT PF(0.5mL) Unknown Completed Queenie ybold - External Shingles IM (Shingrix) Unknown Completed Queenie ybold - External Influenza Virus Vaccine, Unspecified Formulation Unknown Completed Queenie ybold - External AFLURIA TRIVALENT MDV Unknown Completed Queenie ybold - External Hep A/ Hep B Combo Unknown Completed Chino torres Seybold - External Influenza Virus Vaccine, No Preserv, age 6 months and up Unknown Completed Queenie Gladis eybold - External Influenza Virus Vaccine, Intradermal, 18-64 Yrs Unknown Completed Queenie Seybold - External MMR- Measles, Mumps, Rubella Unknown [facility] External Pneumococcal Vaccine, Polysaccharide Unknown Completed Queenie Seybol d - External Tdap- (Boostrix, Adacel) Unknown Completed Queenie Seybold - External Varicella Vaccine Unknown Completed Ke lsey Seybold - External AFLURIA TRIVALENT PF(0.5mL) Unknown [facility] External Shingles IM (Shingrix) Unknown Completed Queenie Seybold - External Influenza Virus Vaccine, Unspecified Formulation Unknown Completed Queenie Seybold - External AFLURIA TRIVALENT MDV Unknown Com[facility] - External Hep A/ Hep B Combo Unknown Completed Chino torres Seybold - External Influenza Virus Vaccine, No Preserv, age 6 months and up Unknown Completed [facility] eybold - External Influenza Virus Vaccine, Intradermal, 18-64 Yrs Unknown Completed Queenie Seybold - External MMR- Measles, Mumps, Rubella Unknown Completed Queenie Seybold - External Pneumococcal Vaccine, Polysaccharide Unknown Completed Queenie Seybol d - External Tdap- (Boostrix, Adacel) Unknown [facility] Varicella Vaccine Unknown Completed [facility] Seybold - External AFLURIA TRIVALENT PF(0.5mL) Unknown Completed Queenie ybold - External Shingles IM (Shingrix) Unknown Com[facility] - External Influenza Virus Vaccine, Unspecified Formulation Unknown Completed Queenie Seybold - External AFLURIA TRIVALENT MDV Unknown Completed Queenie Seybold - External Hep A/ Hep B Combo Unknown Completed [place] torres Seybold - External Influenza Virus Vaccine, No Preserv, age 6 months and up Unknown Completed [facility] eybold - External Influenza Virus Vaccine, Intradermal, 18-64 Yrs Unknown Completed Queenie Seybold - External MMR- Measles, Mumps, Rubella Unknown Completed Queenie Seybold - External Pneumococcal Vaccine, Polysaccharide Unknown Completed Queenie Seybol d - External Tdap- (Boostrix, Adacel) Unknown Completed Queenie Seybold - External Varicella Vaccine Unknown Completed Ke lsey Seybold - External AFLURIA TRIVALENT PF(0.5mL) Unknown Completed Queenie Seybold - External Shingles IM (Shingrix) Unknown Completed Queenie Seybold - External Vital Signs Vital Name Observation Time Observation Value Comments S ource Systolic blood pressure 2024-08-05 20:48:00 118 mm[Hg] Queenie Seybo ld - External Diastolic blood pressure 2024-08-05 20:48:00 70 mm[Hg] Queenie Seybo ld - External Heart rate 2024-08-05 20:48:00 82 /min Kelse y Seybold - External Body temperature 2024-08-05 20:48:00 36.33 Gay Queenie Seybold - External Respiratory rate 2024-08-05 20:48:00 14 /min Queenie Seybold - External Body height 2024-08-05 20:48:00 149.9 cm Stephanie ey Seybold - External Body weight 2024-08-05 20:48:00 79.833 kg Stephanie ey Seybold - External BMI 2024-08-05 20:48:00 35.55 kg/m2 Stephanie ey Seybold - External Oxygen saturation in Arterial blood by Pulse oximetry 2024-08-05 20:48:00 99 /min Queenie Seybo ld - External Systolic blood pressure 2024-04-18 21:28:00 112 mm[Hg] Queenie Seybo ld - External Diastolic blood pressure 2024-04-18 21:28:00 76 mm[Hg] Queenie Seybo ld - External Heart rate 2024-04-18 21:28:00 83 /min Kelse y Seybold - External Body temperature 2024-04-18 21:28:00 36.44 Gay Queenie Seybold - External Respiratory rate 2024-04-18 21:28:00 19 /min Queenie Seybold - External Body height 2024-04-18 21:28:00 149.9 cm Stephanie ey Seybold - External Body weight 2024-04-18 21:28:00 78.472 kg Stephanie ey Seybold - External BMI 2024-04-18 21:28:00 34.94 kg/m2 Stephanie ey Seybold - External Oxygen saturation in Arterial blood by Pulse oximetry 2024-04-18 21:28:00 98 /min Queenie Seybo ld - External Systolic blood pressure 2024-04-08 21:20:00 112 mm[Hg] Queenie Seybo ld - External Diastolic blood pressure 2024-04-08 21:20:00 72 mm[Hg] Queenie Seybo ld - External Heart rate 2024-04-08 21:20:00 72 /min Kelse y Seybold - External Body temperature 2024-04-08 21:20:00 36.44 Gay Queenie Seybold - External Respiratory rate 2024-04-08 21:20:00 14 /min Queenie Seybold - External Body height 2024-04-08 21:20:00 149.9 cm Stephanie ey Seybold - External Body weight 2024-04-08 21:20:00 80.287 kg Stephanie ey Seybold - External BMI 2024-04-08 21:20:00 35.75 kg/m2 Stephanie ey Seybold - External Oxygen saturation in Arterial blood by Pulse oximetry 2024-04-08 21:20:00 98 /min Queenie Seybo ld - External Systolic blood pressure 2024-02-29 21:27:00 108 mm[Hg] Queenie Seybo ld - External Diastolic blood pressure 2024-02-29 21:27:00 72 mm[Hg] Queenie Seybo ld - External Heart rate 2024-02-29 21:27:00 71 /min Kelse y Seybold - External Body temperature 2024-02-29 21:27:00 1 Gay Queenie Seybold - External Respiratory rate 2024-02-29 21:27:00 18 /min Queenie Seybold - External Body height 2024-02-29 21:27:00 149.9 cm Stephanie ey Seybold - External Body weight 2024-02-29 21:27:00 78.019 kg Stephanie ey Seybold - External BMI 2024-02-29 21:27:00 34.74 kg/m2 Stephanie ey Seybold - External Systolic blood pressure 2024-01-08 15:46:00 120 mm[Hg] Queenie Seybo ld - External Diastolic blood pressure 2024-01-08 15:46:00 74 mm[Hg] Queenie Seybo ld - External Heart rate 2024-01-08 15:46:00 65 /min Kelse y Seybold - External Body temperature 2024-01-08 15:46:00 36.39 Gay Queenie Seybold - External Respiratory rate 2024-01-08 15:46:00 16 /min Queenie Seybold - External Body height 2024-01-08 15:46:00 152.4 cm Stephanie ey Seybold - External Body weight 2024-01-08 15:46:00 77.837 kg Stephanie ey Seybold - External BMI 2024-01-08 15:46:00 33.51 kg/m2 Stephanie ey Seybold - External Body height 2023-12-02 15:43:00 152.4 cm Stephanie ey Seybold - External Body weight 2023-12-02 15:43:00 82.01 kg Stephanie ey Seybold - External BMI 2023-12-02 15:43:00 35.31 kg/m2 Stephanie ey Seybold - External Systolic blood pressure 2023-11-26 21:13:00 110 mm[Hg] Queenie Seybo ld - External Diastolic blood pressure 2023-11-26 21:13:00 60 mm[Hg] Queenie Seybo ld - External Heart rate 2023-11-26 21:13:00 93 /min Kelse y Seybold - External Body temperature 2023-11-26 21:13:00 36.17 Gay Queenie Seybold - External Respiratory rate 2023-11-26 21:13:00 15 /min Queenie Seybold - External Body height 2023-11-26 21:13:00 152.4 cm Stephanie ey Seybold - External Body weight 2023-11-26 21:13:00 83.915 kg Stephanie ey Seybold - External BMI 2023-11-26 21:13:00 36.13 kg/m2 Stephanie ey Seybold - External Systolic blood pressure 2023-11-18 18:01:00 135 mm[Hg] Queenie Seybo ld - External Diastolic blood pressure 2023-11-18 18:01:00 83 mm[Hg] Queenie Seybo ld - External Heart rate 2023-11-18 18:01:00 67 /min Kelse y Seybold - External Body temperature 2023-11-18 18:01:00 36.83 Gay Queenie Seybold - External Respiratory rate 2023-11-18 18:01:00 18 /min Queenie Seybold - External Body height 2023-11-18 18:01:00 152.4 cm Stephanie ey Seybold - External Body weight 2023-11-18 18:01:00 83.008 kg Stephanie ey Seybold - External BMI 2023-11-18 18:01:00 35.74 kg/m2 Stephanie ey Seybold - External Body weight 2023-10-30 20:53:00 81.647 kg Stephanie ey Seybold - External BMI 2023-10-30 20:53:00 37.62 kg/m2 Stephanie ey Seybold - External Body weight 2023-09-18 18:31:00 81.194 kg Stephanie ey Seybold - External BMI 2023-09-18 18:31:00 37.41 kg/m2 Stephanie ey Seybold - External Systolic blood pressure 2023-09-02 20:06:00 116 mm[Hg] Queenie Seybo ld - External Diastolic blood pressure 2023-09-02 20:06:00 70 mm[Hg] Queenie Seybo ld - External Heart rate 2023-09-02 20:06:00 83 /min Kelse y Seybold - External Body temperature 2023-09-02 20:06:00 36.5 Gay Queenie Seybold - External Respiratory rate 2023-09-02 20:06:00 14 /min Queenie Seybold - External Body height 2023-09-02 20:06:00 147.3 cm Stephanie ey Seybold - External Body weight 2023-09-02 20:06:00 83.008 kg Stephanie ey Seybold - External BMI 2023-09-02 20:06:00 38.25 kg/m2 Stephanie ey Seybold - External Systolic blood pressure 2023-07-31 19:48:00 120 mm[Hg] Queenie Seybo ld - External Diastolic blood pressure 2023-07-31 19:48:00 74 mm[Hg] Queenie Seybo ld - External Heart rate 2023-07-31 19:48:00 92 /min Kelse y Seybold - External Body temperature 2023-07-31 19:48:00 36.5 Gay Queenie Seybold - External Respiratory rate 2023-07-31 19:48:00 14 /min Queenie Seybold - External Body height 2023-07-31 19:48:00 147.3 cm Stephanie ey Seybold - External Body weight 2023-07-31 19:48:00 85.73 kg Stephanie ey Seybold - External BMI 2023-07-31 19:48:00 39.50 kg/m2 Stephanie ey Seybold - External Systolic blood pressure 2023-07-02 21:05:00 134 mm[Hg] Queenie Seybo ld - External Diastolic blood pressure 2023-07-02 21:05:00 78 mm[Hg] Queenie Seybo ld - External Heart rate 2023-07-02 21:05:00 66 /min Kelse y Seybold - External Body temperature 2023-07-02 21:05:00 36.11 Gay Queenie Seybold - External Body height 2023-07-02 21:05:00 147.3 cm Stephanie ey Seybold - External Body weight 2023-07-02 21:05:00 85.276 kg Stephanie ey Seybold - External BMI 2023-07-02 21:05:00 39.29 kg/m2 Stephanie ey Seybold - External Systolic blood pressure 2023-06-11 20:49:00 124 mm[Hg] Queenie Seybo ld - External Diastolic blood pressure 2023-06-11 20:49:00 80 mm[Hg] Queenie Seybo ld - External Heart rate 2023-06-11 20:49:00 91 /min Kelse y Seybold - External Body temperature 2023-06-11 20:49:00 36.22 Gay Queenie Seybold - External Respiratory rate 2023-06-11 20:49:00 14 /min Queenie Seybold - External Body height 2023-06-11 20:49:00 147.3 cm Stephanie ey Seybold - External Body weight 2023-06-11 20:49:00 85.73 kg Stephanie ey Seybold - External BMI 2023-06-11 20:49:00 39.50 kg/m2 Stephanie ey Seybold - External Systolic blood pressure 2023-05-01 15:52:00 118 mm[Hg] Queenie Seybo ld - External Diastolic blood pressure 2023-05-01 15:52:00 76 mm[Hg] Queenie Rodriguezybo ld - External Heart rate 2023-05-01 15:52:00 98 /min Butchse y Seybold - External Body temperature 2023-05-01 15:52:00 36.5 Gay Queenie Seybold - External Respiratory rate 2023-05-01 15:52:00 20 /min Queenie Rodriguezybold - External Body height 2023-05-01 15:52:00 147.3 cm Stephanie ey Seybold - External Body weight 2023-05-01 15:52:00 87.091 kg Stephanie ey Seybold - External BMI 2023-05-01 15:52:00 40.13 kg/m2 Stephanie ey Seybold - External Oxygen saturation in Arterial blood by Pulse oximetry 2023-05-01 15:52:00 99 /min Queenie Rodriguezybo ld - External Systolic blood pressure 2022-12-26 16:21:00 133 mm[Hg] Queenie Seybo ld - External Diastolic blood pressure 2022-12-26 16:21:00 82 mm[Hg] Queenie Rodriguezybo ld - External Heart rate 2022-12-26 16:21:00 75 /min Willie y Seybold - External Body temperature 2022-12-26 16:21:00 36.61 Gay Queenie Rodriguezybold - External Respiratory rate 2022-12-26 16:21:00 15 /min Queenie Rodriguezybold - External Body height 2022-12-26 16:21:00 147.3 cm Stephanie ey Seybold - External Body weight 2022-12-26 16:21:00 72.122 kg Stephanie ey Seybold - External BMI 2022-12-26 16:21:00 33.23 kg/m2 Stephanie ey Seybold - External Oxygen saturation in Arterial blood by Pulse oximetry 2022-12-26 16:21:00 97 /min Queenie Rodriguezybo ld - External Systolic blood pressure 2022-12-01 21:50:00 117 mm[Hg] [facility] Diastolic blood pressure 2022-12-01 21:50:00 71 mm[Hg] [facility] Heart rate 2022-12-01 21:50:00 68 /min [facility] Body temperature 2022-12-01 21:50:00 37.06 Gay [facility] Respiratory rate 2022-12-01 21:50:00 16 /min [facility] Oxygen saturation in Arterial blood by Pulse oximetry 2022-12-01 21:50:00 95 /min [place] [facility] Body weight 2022-12-01 17:51:00 78.2 kg [facility] [facility] 2022-12-01 17:51:00 33.67 kg/m2 [facility] Systolic blood pressure 2022-11-25 14:50:00 133 mm[Hg] Queenie Seybo ld - External Diastolic blood pressure 2022-11-25 14:50:00 74 mm[Hg] Queenie Seybo ld - External Heart rate 2022-11-25 14:50:00 70 /min Butchse y Seybold - External Body temperature 2022-11-25 14:50:00 36.89 Gay Queenie Seybold - External Respiratory rate 2022-11-25 14:50:00 15 /min Queenie Rodriguezybold - External Body height 2022-11-25 14:50:00 147.3 cm Stephanie ey Seybold - External Body weight 2022-11-25 14:50:00 72.122 kg Stephanie ey Seybold - External BMI 2022-11-25 14:50:00 33.23 kg/m2 Stephanie ey Seybold - External Oxygen saturation in Arterial blood by Pulse oximetry 2022-11-25 14:50:00 97 /min Queenie Seybo ld - External Systolic blood pressure 2022-08-25 14:45:00 114 mm[Hg] Queenie Seybo ld - External Diastolic blood pressure 2022-08-25 14:45:00 71 mm[Hg] Queenie Seybo ld - External Heart rate 2022-08-25 14:45:00 87 /min Kelse y Seybold - External Body temperature 2022-08-25 14:45:00 36.61 Gay Queenie Seybold - External Respiratory rate 2022-08-25 14:45:00 13 /min Queenie Seybold - External Body height 2022-08-25 14:45:00 147.3 cm Stephanie ey Seybold - External Body weight 2022-08-25 14:45:00 70.761 kg Stephanie ey Seybold - External BMI 2022-08-25 14:45:00 32.60 kg/m2 Stephanie ey Seybold - External Oxygen saturation in Arterial blood by Pulse oximetry 2022-08-25 14:45:00 97 /min Queenie Seybo ld - External Systolic blood pressure 2022-07-24 19:27:00 102 mm[Hg] Queenie Seybo ld - External Diastolic blood pressure 2022-07-24 19:27:00 67 mm[Hg] Queenie Seybo ld - External Heart rate 2022-07-24 19:27:00 78 /min Willie y Seybold - External Body temperature 2022-07-24 19:27:00 36.61 Gay Queenie Seybold - External Respiratory rate 2022-07-24 19:27:00 14 /min Queenie Seybold - External Body height 2022-07-24 19:27:00 147.3 cm Stephanie ey Seybold - External Body weight 2022-07-24 19:27:00 76.204 kg Stephanie ey Seybold - External BMI 2022-07-24 19:27:00 35.11 kg/m2 Stephanie ey Seybold - External Oxygen saturation in Arterial blood by Pulse oximetry 2022-07-24 19:27:00 99 /min Queenie Rodriguezybo ld - External Body temperature 2019-09-02 19:32:00 36.61 Gay [facility] Systolic blood pressure 2019-07-05 21:16:00 104 mm[Hg] [facility] Diastolic blood pressure 2019-07-05 21:16:00 70 mm[Hg] [facility] Heart rate 2019-07-05 21:16:00 78 /min [facility] Respiratory rate 2019-07-05 21:16:00 16 /min [facility] Body height 2019-07-05 21:16:00 152.4 cm [facility] Body weight 2019-07-05 21:16:00 87.181 kg [facility] BMI 2019-07-05 21:16:00 37.54 kg/m2 [facility] Systolic blood pressure 2019-06-20 20:27:00 134 mm[Hg] [facility] Diastolic blood pressure 2019-06-20 20:27:00 82 mm[Hg] [facility] Heart rate 2019-06-20 20:27:00 94 /min [facility] Body temperature 2019-06-20 20:27:00 38.11 Gay [facility] Body height 2019-06-20 20:27:00 152.4 cm [facility] Body weight 2019-06-20 20:27:00 85.73 kg [facility] BMI 2019-06-20 20:27:00 36.91 kg/m2 [facility] Systolic blood pressure 2018-12-03 21:34:00 119 mm[Hg] [facility] Diastolic blood pressure 2018-12-03 21:34:00 74 mm[Hg] [facility] Heart rate 2018-12-03 21:34:00 68 /min [facility] Body temperature 2018-12-03 21:34:00 36.67 Gay [facility] Body height 2018-12-03 21:34:00 152.4 cm [facility] Body weight 2018-12-03 21:34:00 82.555 kg [facility] BMI 2018-12-03 21:34:00 35.54 kg/m2 [facility] Procedures Procedure Date / Time Performed Performing Clinician Source CONSENT/REFUSAL FOR DIAGNOSIS AND TREATMENT 2023-02-19 15:10:13 Doctor Unassigned, Salome [facility] LIPASE 2022-12-01 18:19:00 [facility] TROPONIN I 2022-12-01 18:19:00 [facility] COMP. METABOLIC PANEL (98669) 2022-12-01 18:19:00 Geoff Mcgovern [facility] CBC WITH DIFF 2022-12-01 18:19:00 [facility] URINALYSIS 2022-12-01 18:19:00 Geoff Mcgovern [facility] NOTICE OF PRIVACY PRACTICES 2022-12-01 17:26:25 Doctor Unassigned, Salome [facility] CONSENT/REFUSAL FOR DIAGNOSIS AND TREATMENT 2022-12-01 17:26:05 Doctor Unassigned, Salome [facility] T[place]RIX (HEP A/HEP B)VACCINE 2019-09-02 19:33:30 Doctor Unassigned, Salome [facility] STATEMENT OF PATIENT FINANCIAL RESPONSIBILITY 2019-09-02 05:01:00 Doctor Unassigned, Salome [facility] POCT HEMOGLOBIN A1C TEST 2019-07-05 00:00:00 Forrest Dawn [facility] POCT FLU A AND B (MOLECULAR) 2019-06-20 00:00:00 Keisha Brennan [facility] US RETROPERITONEAL COMPLETE 2016-11-05 22:36:00 Rosa Boone [facility] DAY SURGERY [facility] 2016-08-11 05:01:00 Doct or Unassigned, Salome [facility] Encounters Start Date/Time End Date/Time Encounter Type Admission Type Attending Clinicians Care Facility Care Department Encounter ID Source 2023-02-19 10:03:24 Emergency [facility] [id number] [facility] 2023-02-17 13:38:00 Outpatient [facility] [id number] [facility] 2023-02-16 08:31:00 Outpatient [facility] [id number] 2025-04-17 14:00:00 2025-04-17 14:00:00 Outpatient ESTEBAN SUAREZ [id number] Queenie natali 2024-09-16 15:00:00 2024-09-16 15:00:00 Outpatient SARIKA COREAS [id number] Queenie Lisa 2024-08-12 09:55:00 2024-08-12 09:55:00 Outpatient LAB90 QUEENIE TOLLIVER [id number] [facility] 2024-08-10 00:00:00 2024-08-10 00:00:00 Outpatient SARIKA COREAS QUEENIE TOLLIVER [id number] Queenie Lisa 2024-08-08 00:00:00 2024-08-08 00:00:00 Outpatient ADELINE ALLENKELLY TOLLIVER [id number] Queenie Lisa 2024-08-05 16:15:00 2024-08-05 16:15:00 Outpatient LAB90 QUEENIE TOLLIVER [id number] Queenie Rodriguezphyllis 2024-08-05 16:00:00 2024-08-05 16:00:00 Outpatient HUNDSARIKA Abbott QUEENIE TOLLIVER [id number] Queenie Rodriguezphyllis 2024-07-13 00:00:00 2024-07-13 00:00:00 Outpatient HUNDMilena SARIKA QUEENIE TOLLIVER [id number] Queenie Lisa 2024-07-03 00:00:00 2024-07-03 00:00:00 Outpatient ADELINE ALLEN QUEENIE TOLLIVER [id number] Queenie Rodriguezphyllis 2024-06-27 11:30:00 2024-06-27 11:30:00 Outpatient YENIFER HERRINGCHANCE TOLLIVER [id number] Queenie phyllis 2024-06-27 00:00:00 2024-06-27 00:00:00 Outpatient MD QUEENIE JAIN [id number] Queenie Rodriguezphyllis 2024-06-22 08:00:00 2024-06-22 08:00:00 Outpatient JOSS SARIKA TOLLIVER [id number] Queen[facility] 2024-06-20 14:30:00 2024-06-20 14:30:00 Outpatient HUNDMilena SARIKA TOLLIVER [id number] [place] 2024-06-15 00:00:00 2024-06-15 00:00:00 Outpatient JOSS SARIKA TOLLIVER [id number] [facility] [facility] 2016-08-11 00:00:00 2024-06-11 03:51:51 Orders Only Doctor Unassigned, Salome Doctor Unassigned, Salome [facility] 1.2.840.114 350.1.13.10 4.2.7.2.[id number] [facility] 2016-11-05 00:00:00 2024-06-11 03:44:04 Orders Only Doctor Unassigned, Salome Doctor Unassigned, Salome [facility] ([facility] 1.2.840.114 350.1.13.10 4.2.7.2.[id number] [facility] 2017-08-05 00:00:00 2024-06-11 03:22:27 Orders Only Doctor Unassigned, Salome Doctor Unassigned, Salome [facility] ([facility] 1.2.840.114 350.1.13.10 4.2.7.2.[id number] [facility] 2024-06-06 00:00:00 2024-06-06 00:00:00 Outpatient SARIKA COREAS [id number] [facility] 2024-05-23 13:30:00 2024-05-23 13:30:00 Outpatient SARIKA COREAS [id number] [facility] 2024-05-05 00:00:00 2024-05-05 00:00:00 Outpatient SARIKA COREAS [id number] [facility] 2024-05-02 00:00:00 2024-05-02 00:00:00 Outpatient ESTEBAN SUAREZ [id number] [facility] 2024-04-26 00:00:00 2024-04-26 00:00:00 Outpatient MD QUEENIE JAIN [id number] [facility] 2024-04-18 15:45:00 2024-04-18 15:45:00 Outpatient ESTEBAN SUAREZ [id number] [facility] 2024-04-08 15:30:00 2024-04-08 15:30:00 Outpatient SARIKA COREAS [id number] [facility] 2024-04-05 00:00:00 2024-04-05 00:00:00 Outpatient SARIKA COREAS QUEENIE TOLLIVER [id number] Queenie Seybphyllis 2024-03-21 13:15:00 2024-03-21 13:15:00 Outpatient DANIELAESTEBAN TORIBIO QUEENIE TOLLIVER [id number] Queenie Seybphyllis 2024-02-29 15:45:00 2024-02-29 15:45:00 Outpatient KAROLYN HERRING QUEENIE TOLLIVER [id number] [facility] 2024-02-28 00:00:00 2024-02-28 00:00:00 Outpatient JOSS SARIKA TOLLIVER [id number] Queenie Seybphyllis 2024-02-16 00:00:00 2024-02-16 00:00:00 Outpatient DANIELAVALENTE TORIBIOTuan TOLLIVER [id number] [facility] 2024-02-15 00:00:00 2024-02-15 00:00:00 Outpatient DANIELAESTEBAN TORIBIO QUEENIE TOLLIVER [id number] [facility] 2024-02-12 13:45:00 2024-02-12 13:45:00 Outpatient QUEENIE TOLLIVER [id number] [facility] 2024-01-26 00:00:00 2024-01-26 00:00:00 Outpatient JOSS SARIKA QUEENIE TOLLIVER [id number] [facility] 2024-01-20 11:00:00 2024-01-20 11:00:00 Outpatient QUEENIE TOLLIVER [id number] Queenie Seybold 2024-01-12 09:30:00 2024-01-12 09:30:00 Outpatient LORA, JAZMÍN QUEENIE TOLLIVER [id number] Queenie Seybold 2024-01-11 00:00:00 2024-01-11 00:00:00 Outpatient ADELINE ALLEN [id number] Queenie Seybold 2024-01-08 11:45:00 2024-01-08 11:45:00 Outpatient LAB90 QUEENIE TOLLIVER [id number] Queenie Seybold 2024-01-08 11:00:2024-01-08 11:00:00 Outpatient JOSS SARIKA QUEENIE TOLLIVER [id number] [facility] 2023-12-25 15:50:00 2023-12-25 15:50:00 Outpatient ONDINA BONE QUEENIE TOLLIVER [id number] [facility] 2023-12-24 00:00:00 2023-12-24 00:00:00 Outpatient JOSS SARIKA TOLLIVER [id number] [facility] 2023-12-21 10:00:00 2023-12-21 10:00:00 Outpatient FLOYD AREVALO QUEENIE TOLLIVER [id number] [facility] 2023-12-19 00:00:00 2023-12-19 00:00:00 Outpatient JOSS, SARIKA TOLLIVER [id number] [facility] 2023-12-02 11:00:00 2023-12-02 11:00:00 Outpatient DEBHALI CASSY QUEENIE TOLLIVER [id number] [facility] 2023-11-30 15:00:00 2023-11-30 15:00:00 Outpatient ESTEBAN SUAREZ QUEENIE TOLLIVER [id number] [facility] 2023-11-27 00:00:00 2023-11-27 00:00:00 Outpatient ADELINE ALLEN QUEENIE TOLLIVER [id number] [facility] 2023-11-26 16:30:00 2023-11-26 16:30:00 Outpatient JOSS SARIKA TOLLIVER [id number] [facility] 2023-11-18 13:15:00 2023-11-18 13:15:00 Outpatient DANIELAESTEBAN TORIBIO QUEENIE TOLLIVER [id number] [facility] 2023-11-05 00:00:00 2023-11-05 00:00:00 Outpatient ABAL, SARIKA TOLLIVER [id number] [facility] 2023-11-05 00:00:00 2023-11-05 00:00:00 Outpatient ABAL, SARIKA TOLLIVER [id number] [facility] 2023-11-04 16:00:2023-11-04 16:00:00 Outpatient SARIKA COREAS QUEENIE TOLLIVER [id number] [facility] 2023-10-30 16:00:00 2023-10-30 16:00:00 Outpatient BONEONDINA FINNEY QUEENIE TOLLIVER [id number] [facility] 2023-10-08 00:00:00 2023-10-08 00:00:00 Outpatient JOSS SARIKA TOLLIVER [id number] [facility] 2023-10-04 00:00:00 2023-10-04 00:00:00 Outpatient JOSS SARIKA TOLLIVER [id number] [facility] 2023-10-01 00:00:00 2023-10-01 00:00:00 Outpatient ADELINE ALLEN QUEENIE TOLLIVER [id number] [facility] 2023-10-01 00:00:00 2023-10-01 00:00:00 Outpatient TIFFANY ADELINE QUEENIE TOLLIVER [id number] [facility] 2023-09-30 14:20:00 2023-09-30 14:20:00 Outpatient LABVidhi QUEENIE TOLLIVER [id number] [facility] 2023-09-30 00:00:00 2023-09-30 00:00:00 Outpatient SARIKA COREAS QUEENIE TOLLIVER [id number] [facility] 2023-09-18 14:00:00 2023-09-18 14:00:00 Outpatient SMITHA ONDINA QUEENIE TOLLIVER [id number] [facility] 2023-09-02 15:00:00 2023-09-02 15:00:00 Outpatient JOSS SARIKA TOLLIVER [id number] [facility] 2023-08-23 00:00:00 2023-08-23 00:00:00 Outpatient JOSS SARIKA TOLLIVER [id number] [facility] 2023-08-20 00:00:00 2023-08-20 00:00:00 Outpatient MD QUEENIE JAIN [id number] [facility] 2023-08-03 00:00:00 2023-08-03 00:00:00 Outpatient QUEENIE TOLLIVER [id number] Queenie Rodriguezybphyllis 2023-07-31 15:00:00 2023-07-31 15:00:00 Outpatient HUNDL, SARIKA QUEENIE TLOLIVER [id number] Queenie Rodriguezybphyllis 2023-07-29 00:00:00 2023-07-29 00:00:00 Outpatient HUNDL, SARIKA TOLLIEVR [id number] Queenie Rodriguezybphyllis 2023-07-21 00:00:00 2023-07-21 00:00:00 Outpatient HUNDL, SARIKA QUEENIE TOLLIVER [id number] Queenie Rodriguezybphyllis 2023-07-04 00:00:00 2023-07-04 00:00:00 Outpatient ADELINE ALLEN [id number] Queenie Rodriguezybphyllis 2023-07-02 15:50:00 2023-07-02 15:50:00 Outpatient LAB90 QUEENIE TOLLIVER [id number] [facility] 2023-07-02 15:00:00 2023-07-02 15:00:00 Outpatient HUNDL, SARIKA TOLLIVER [id number] Queenie Rodriguezybphyllis 2023-07-02 00:00:00 2023-07-02 00:00:00 Outpatient HUNDL, SARIKA TOLLIVER [id number] [facility] 2023-06-22 00:00:00 2023-06-22 00:00:00 Outpatient HUNDL, SARIKA TOLLIVER [id number] [facility] 2023-06-19 13:25:00 2023-06-19 13:25:00 Outpatient QUEENIE TOLLIVER [id number] [facility] 2023-06-18 00:00:00 2023-06-18 00:00:00 Outpatient HUNDL, SARIKA TOLLIVER [id number] Queenie Seybold 2023-06-11 15:00:00 2023-06-11 15:00:00 Outpatient HUNDL, SARIKA TOLLIVER [id number] Queenie Seybold 2023-06-03 10:30:00 2023-06-03 10:30:00 Outpatient PREADELINE MAX [id number] [facility] 2023-05-23 00:00:00 2023-05-23 00:00:00 Outpatient ADELINE ALLEN [id number] Queenie Rodriguezphyllis 2023-05-22 00:00:00 2023-05-22 00:00:00 Outpatient PREADELINE MAX [id number] [facility] 2023-05-14 00:00:00 2023-05-14 00:00:00 Outpatient ADELINE ALLEN [id number] [facility] 2023-05-04 00:00:00 2023-05-04 00:00:00 Outpatient ADELINE ALLEN [id number] Queenie Rodriguezphyllis 2023-05-01 10:50:00 2023-05-01 10:50:00 Outpatient LABVidhi TOLLIVER [id number] [facility] 2023-05-01 10:00:00 2023-05-01 10:00:00 Outpatient ADELINE ALLEN [id number] [facility] 2023-05-01 00:00:00 2023-05-01 00:00:00 Outpatient QUEENIE TLOLIVER [id number] [facility] 2023-02-24 00:00:00 2023-02-24 00:00:00 Outpatient GC_GCBZW_Ka diyala_S PRIV PRIV [id number] [facility] 2023-02-23 00:00:00 2023-02-23 00:00:00 Outpatient GC_GCBZW_Ka diyala_S PRIV PRIV [id number] [facility] 2023-02-19 10:13:22 2023-02-19 23:59:00 Outpatient R RADIOLOGY [facility] [id number] [facility] 2023-02-19 10:13:22 2023-02-19 23:59:00 Hospital Encounter Radiology [facility] 1.2.840.114 350.1.13.10 4.2.7.2.[id number] [facility] 2023-02-19 00:00:00 2023-02-19 00:00:00 Orders Only Doctor Unassigned, Salome [facility] 1.2.840.114 350.1.13.10 4.2.7.2.[id number] [facility] 2023-02-03 15:30:00 2023-02-03 15:30:00 Outpatient PREZAS, ADELINE QUEENIE TOLLIVER [id number] [facility] 2023-02-02 16:00:00 2023-02-02 16:00:00 Outpatient PREZAS, ADELINE TOLLIVER [id number] [facility] 2023-01-30 15:45:00 2023-01-30 15:45:00 Outpatient PREZAS, ADELINE TOLLIVER [id number] [facility] 2023-01-28 00:00:00 2023-01-28 00:00:00 Outpatient PREZAS, ADELINE TOLLIVER [id number] [facility] 2022-12-26 11:30:00 2022-12-26 11:30:00 Outpatient PREZAS, ADELINE TOLLIVER [id number] [facility] 2022-12-18 00:00:00 2022-12-18 00:00:00 Outpatient PREZAS, ADELINE TOLLIVER [id number] [facility] 2022-12-01 12:56:00 2022-12-01 17:01:00 Emergency X GEOFF MCGOVERN [facility] ERT [id number] [facility] 2022-12-01 12:56:00 2022-12-01 17:01:00 Emergency Geoff Mcgovern [facility] 1.2.840.114 350.1.13.10 4.2.7.2.[id number] [facility] 2022-12-01 00:00:00 2022-12-01 00:00:00 Outpatient PREZAS, ADELINE TOLLIVER [id number] [facility] 2022-11-26 00:00:00 2022-11-26 00:00:00 Outpatient PREZAS, ADELINE TOLLIVER [id number] [facility]ie Rodriguezphyllis 2022-11-25 10:30:00 2022-11-25 10:30:00 Outpatient LABVidhi TOLLIVER [id number] [facility] 2022-11-25 10:00:00 2022-11-25 10:00:00 Outpatient PREZAS, ADELINE TOLLIVER [id number] [facility] 2022-09-11 00:00:00 2022-09-11 00:00:00 Outpatient PREZAS, ADELINE TOLLIVER [id number] [facility] 2022-09-11 00:00:00 2022-09-11 00:00:00 Outpatient PREZAS, ADELINE TOLLIVER [id number] [facility] 2022-09-11 00:00:00 2022-09-11 00:00:00 Outpatient PREZAS, ADELINE [facility]IVER [id number] [facility] 00:00:00 2022-09-11 00:00:00 Outpatient PREZAS, ADELINE TOLLIVER [id number] [facility] 2022-08-26 00:00:00 2022-08-26 00:00:00 Outpatient PREZAS, ADELINE TOLLIVER QUEENIE [id number] [facility] 2022-08-25 09:45:00 2022-08-25 09:45:00 Outpatient PREZAS, ADELINE TOLLIVER QUEENIE [id number] [facility] 2022-08-01 00:00:00 2022-08-01 00:00:00 Outpatient PREZAS, ADELINE TEMPLETONSEY [id number] [facility] 2022-08-01 00:00:00 2022-08-01 00:00:00 Outpatient PREZAS, ADELINE TOLLIVER QUEENIE [id number] [facility] 2022-08-01 00:00:00 2022-08-01 00:00:00 Outpatient PREZAS, ADELINE TOLLIVER QUEENIE [id number] [facility] 2022-07-31 08:00:00 2022-07-31 08:00:00 Outpatient LAB90 QUEENIE TOLLIVER [id number] Queenie Lisa 2022-07-24 14:30:00 2022-07-24 14:30:00 Outpatient ADELINE ALLEN [id number] Queenie Lisa 2022-03-17 00:00:00 2022-03-17 00:00:00 Outpatient R [facility] [id number] [facility] 2022-02-28 00:00:00 2022-02-28 00:00:00 Telephone Annie Dawn [facility] 04.28.840.114 350.1.13.10 4.2.7.2.[id number] [facility] 2021-11-25 00:00:00 2021-11-25 00:00:00 Outpatient MARILEE VALLADARES RIELIAS [facility] [id number] Nayely [facility] 2020-07-22 13:45:00 2020-07-23 15:43:03 Outpatient CHANEL URIAS [facility] [id number] [facility] 2020-06-24 14:10:00 2020-06-24 14:10:00 Outpatient CHANEL URIAS [facility] [id number] [facility] 2020-04-10 15:00:00 2020-04-10 15:00:00 Outpatient GARCIA WOODRUFF [facility] [id number] [facility] 2020-03-07 00:00:00 2020-03-07 00:00:00 Telephone Keisha Brennan [facility] ..840.114 350.1.13.10 4.2.7.2.[id number] [facility] 2020-01-25 15:00:00 2020-01-25 15:00:00 Outpatient ANNIE DELUCA [facility] [id number] [facility] 2019-11-08 16:30:00 2019-11-08 17:00:00 [facility] 1.2.840.114 350.1.13.10 4.2.7.2.[id number] [facility] 2019-11-08 16:30:00 2019-11-08 16:30:00 Outpatient R AAYUSH [facility] [id number] [facility] 2019-09-02 14:21:10 2019-09-02 14:36:10 Nurse Visit Nurse, Keisha Machado [facility] 1.2.840.114 350.1.13.10 4.2.7.2.[id number] [facility] 2019-09-02 14:15:00 2019-09-02 14:15:00 Outpatient KEISHA FAIRCHILD [facility] [id number] [facility] 2019-09-02 00:00:00 2019-09-02 00:00:00 Orders Only Doctor Unassigned, Salome [facility] 1.2840.114 350.1.13.10 4.2.7.2.[id number] [facility] 2019-08-26 00:00:00 2019-08-26 00:00:00 [facility] 1.2.840.114 350.1.13.10 4.2.7.2.[id number] [facility] 2019-07-28 00:00:00 2019-07-28 00:00:00 Patient Secure Msg Aayush [facility] 1.2.840.114 350.1.13.10 4.2.7.2.[id number] [facility] 2019-07-09 10:18:09 2019-07-09 10:33:09 Mosaic Technician Visit Pob, Adc Lab Main Aayush [facility] Building 1..114 350.1.13.10 4.2.7.2.[id number] [facility] 2019-07-09 10:15:00 2019-07-09 10:15:00 Outpatient R AAYUSH [facility] [id number] [facility] 2019-07-05 16:04:58 2019-07-05 16:48:24 Office Visit Aayush [facility] Building 1..114 350.1.13.10 4.2.7.2.[id number] [facility] 2019-07-05 16:00:00 2019-07-05 16:00:00 Outpatient R AAYUSH [facility] [id number] [facility] 2019-06-24 00:00:00 2019-06-24 00:00:00 Telephone Mika Jossetawny [facility] Office Building One 1..114 350.1.13.10 4.2.7.2.[id number] [facility] 2019-06-20 14:10:33 2019-06-20 15:16:50 Office Visit Keisha Brennan God[facility] Office Building One 1.2.114 350.1.13.10 4.2.7.2.[id number] [facility] 2019-06-20 14:15:00 2019-06-20 14:15:00 Outpatient R KEISHA BRENNAN [facility] [id number] [facility] 2019-06-20 00:00:00 2019-06-20 00:00:00 Letter (Out) Mika Josseradhafelix Donahue [facility] Office Building One 1..114 350.1.13.10 4.2.7.2.[id number] [facility] 2019-06-06 00:00:00 2019-06-06 00:00:00 Refill Keisha Brennan [facility] Office Building One 1.2.840.114 350.1.13.10 4.2.7.2.[id number] [facility] 2019-06-05 00:00:00 2019-06-05 00:00:00 Refill Keisha Brennan [facility] Office Building One 1.2.840.114 350.1.13.10 4.2.7.2.[id number] [facility] 2019-05-30 00:00:00 2019-05-30 00:00:00 Refill Keisha Brennan [facility] Office Building One [id number] 350.1.13.10 4.2.7.2.[id number] [facility] 2019-05-29 00:00:00 2019-05-29 00:00:00 [facility] Building [id number] 350.1.13.10 4.2.7.2.[id number] [facility] 2019-05-23 00:00:00 2019-05-23 00:00:00 Refill Annie Dawn [facility] Building [id number] 350.1.13.10 4.2.7.2.[id number] [facility] 2018-12-03 16:12:07 2018-12-03 17:02:58 Office Visit Keisha Brennan [facility] Office Building One [id number] 350.1.13.10 4.2.7.2.[id number] [facility] 2018-12-03 00:00:00 2018-12-03 00:00:00 Keisah Hodges [facility] Office Building One [id number] 350.1.13.10 4.2.7.2.[id number] [facility] 2018-11-28 00:00:00 2018-11-28 00:00:00 Telephone Annie Dawn [facility] Building [id number] 350.1.13.10 4.2.7.2.[id number] [facility] 2018-05-12 10:50:00 2018-05-12 10:50:[address] [facility] [facility] [id number] [facility] 2018-02-09 17:44:00 2018-02-09 17:44:[address] [facility] [id number] [facility] 2018-01-07 15:30:00 2018-01-07 15:30:[address] [facility] [facility] [id number] [facility] 2017-08-20 15:30:00 2017-08-20 15:30:[address] [facility] [facility] [id number] [facility] 2017-08-12 08:26:00 2017-08-12 08:26:[address] [facility] [facility] [id number] [facility] 2017-08-11 11:22:00 2017-08-11 11:22:[address] [facility] [facility] [id number] [facility] 2017-07-29 15:30:00 2017-07-29 15:30:[address] [facility] [id number] [facility] Results Test Description Test Time Test Comments Results Result Co mments Source [facility]. METABOLIC PANEL (51196)2022-12-01 19:09:12* Test Item Value Reference Range Interpretation Comme nts NA (test code = 5636476900) 136 mmol/L 135-145 K (test code = 8126558145) 4.0 mmol/L 3.5-5.0 CL (test code = 9205637232) 98 mmol/L 98-108 CO2 TOTAL (test code = 5242908883) 29 mmol/L 23-31 AGAP (test code = 5891828488) 9 2-16 BUN (test code = 6238764404) 17 mg/dL 7-23 GLUCOSE (test code = 8936008022) 117 mg/dL 70-110 H CREATININE (test code = 5996770964) 0.57 mg/dL 0.50-1.04 TOTAL BILI (test code = 0940651508) 0.8 mg/dL 0.1-1.1 CALCIUM (test code = 2988587910) 9.3 mg/dL 8.6-10.6 T PROTEIN (test code = 3885364607) 8.6 g/dL 6.3-8.2 H ALBUMIN (test code = 3577952757) 4.4 g/dL 3.5-5.0 ALK PHOS (test code = 3229230267) 100 U/L 34-122 ALTv (test code = 1742-6) 27 U/L 5-35 AST(SGOT) (test code = 9210947360) 38 U/L 13-40 eGFR (test code = 4573948233) 109.7 mL/min/1.73m2 ZANA (test code = ZANA) Association of Glomerular Filtration Rate (GFR) and Staging of Kidney Disease* + --+ --+ ------+| GFR (mL/min/1.73 m2) ?| With Kidney Damage ?| ?Without Kidney Damage+ --------+ --------+ +| ?>90 ?| ?Stage one ?| ? Normal ?+ ---+ ---+ -------+| ?60-89 ?| ?Stage two ?| ? Decreased GFR ? + --+ --+ ------+| ?30-59 ?| ?Stage three ?| ? Stage three ? + --+ --+ ------+| ?15-29 ?| ?Stage four ? | ? Stage four ?+ ---+ ---+ -------+| ?<15 (or dialysis) ? ?| ?Stage five ? | ? Stage five ?+ ---+ ---+ -------+ *Each stage assumes the associated GFR level has been in effect for at least three months. ?Stages 1 to 5, with or without kidney disease, indicate chronic kidney disease. Notes: Determination of stages one and two (with eGFR >59mL/min/1.73 m2) requires estimation of kidney damage for at least three months as defined by structural or functional abnormalities of the kidney, manifested by either:Pathological abnormalities or Markers of kidney damage (including abnormalities in the composition of the blood or urine or abnormalities in imaging tests). Lab Interpretation (test code = 63645-3) [facility]* Test Item Value Reference Range Interpretation Comme nts LIPASE (test code = 0856479235) 197 U/L 0-220 Lab Interpretation (test cod e = 53663-7) Normal [facility] WITH [id number] 18:45:25* Test Item Value Reference Range Interpretation Comme nts WBC (test code = 6690-2) 13.63 See_Comment H [Automated [employer]] The system which generated this result transmitted reference range: 4.30 - 11.10 10*3/?L. The reference range was not used to interpret this result as normal/abnormal. RBC (test code = 789-8) 4.57 See_Comment [Automated [employer]] The system which generated this result transmitted reference range: 3.93 - 5.25 10*6/?L. The reference range was not used to interpret this result as normal/abnormal. HGB (test code = 718-7) 13.4 g/dL 11.6-15.0 HCT (test code = 4544-3) 40.3 % 35.7-45.2 MCV (test code = 787-2) 88.2 fL 80.6-95.5 MCH (test code = 785-6) 29.3 pg 25.9-32.8 MCHC (test code = 786-4) 33.3 g/dL 31.6-35.1 RDW-SD (test code = 20835-8) 45.5 fL 39.0-49.9 RDW-CV (test code = 788-0) 14.2 % 12.0-15.5 PLT (test code = 777-3) 249 See_Comment [Automated [employer] ge] The system which generated this result transmitted reference range: 166 - 358 10*3/?L. The reference range was not used to interpret this result as normal/abnormal. MPV (test code = 21447-5) 10.6 fL 9.5-12.9 NRBC/100 WBC (test code = 3810872354) 0.0 See_Comment [Automated [employer] ssage] The system which generated this result transmitted reference range: 0.0 - 10.0 /100 WBCs. The reference range was not used to interpret this result as normal/abnormal. NRBC x10^3 (test code = 3202135027) See_Comment [Automated [employer] ge] The system which generated this result transmitted reference range: 10*3/?L. The reference range was not used to interpret this result as normal/abnormal. GRAN MAT (NEUT) % (test code = 770-8) 70.1 % IMM GRAN % (test code = 6034063983) 0.40 % LYMPH % (test code = 736-9) 19.0 % MONO % (test code = 5905-5) 9.8 % EOS % (test code = 713-8) 0.5 % BASO % (test code = 706-2) 0.2 % GRAN MAT x10^3(ANC) (test code = 7446776537) 9.55 10*3/uL 1.88-7.09 H IMM GRAN x10^3 (test code = 5457052699) 0.06 10*3/uL 0.00-0.06 LYMPH x10^3 (test code = 731-0) 2.59 10*3/uL 1.32-3.29 MONO x10^3 (test code = 742-7) 1.33 10*3/uL 0.33-0.92 H EOS x10^3 (test code = 711-2) 0.07 10*3/uL 0.03-0.39 BASO x10^3 (test code = 704-7) 0.03 10*3/uL 0.01-0.07 Lab Interpretation (test code = 65098-5) Abnormal [facility] HEMOGLOBIN A1C [id number] 21:25:00* Test Item Value Reference Range Interpretation Comme [facility] POCT HBA1C (test code = 4548-4) 6.3 % 4-6 [facility] HEMOGLOBIN A1C [id number] 21:25:00* Test Item Value Reference Range Interpretation Comme nts POCT HBA1C (test code = 4548-4) 6.3 % 4-6 [facility] FLU A AND B (MOLECULAR)2019-06-20 21:05:00* Test Item Value Reference Range Interpretation Comme nts POCT INFLUENZA A (test code = 3840) positive Negative - Negative POCT INFLUENZA B (test code = 3841) negative Negative - Negative Lab Interpretation (test cod e = 03085-2) Abnormal [facility] FLU A AND B (MOLECULAR)2019-06-20 21:05:00* Test Item Value Reference Range Interpretation Comme nts POCT INFLUENZA A (test code = 3840) positive Negative - Negative POCT INFLUENZA B (test code = 3841) negative Negative - Negative Lab Interpretation (test cod e = 92910-4) [facility]normal [facility] [id number] 12:56:00 *.*.*.*.*.*.*.*.*.*.*.*.*.*FINAL*.*.*.*.*.*.*.*.*.*.*.*.*.*.*EXAM: US RETROPERITONEAL COMPLETE- HISTORY: ?N20.0 Calculus of kidney S/SX, Dx: Meghan Vazquez is a 51 year oldfemale sp Left kidney stone removed- eval for silent hydro post procedure- pthas dup collecting sys on left. COMPARISON: CT abdomen pelvis 11/15/2015. FINDINGS: Both kidneys are normal in size and echotexture without hydronephrosis orperirenal fluid. ?The right kidney measures 10 x 4.6 x 5.6 cm and the leftkidney measures 14 x 5.6 x 5.4 cm. ?The right kidney is larger than the left. Faint non shadowing echogenic foci within the renal medulla are presentbilaterally. No obstructing stone is identified. Partially visualized fatty infiltration of liver. YANG JONES MD ?Personally interpreted by: VIVIEN NIX MD /Signed/ VIVIEN NIX MD [facility] Notes Date/Time Note Provider Source 2024-08-05 15:50:40 Chief Complaint Patient presents with Follow-up Follow up on weight management [facility] 2024-04-08 15:25:46 Chief Complaint Patient presents with Diabetes Diabetic and weight follow up. OTHER Renewal of handicap placshelly Siu MA II [facility] 2024-02-29 15:30:11 Chief Complaint Patient presents with Consultation Diabetes Fasting Blood sugar 110 Thyroid Problem Lizzette Jacob CMA II [facility] 2024-01-08 10:52:10 Chief Complaint Patient presents with Physical Patient is fasting. No other issues to discuss [facility] 2023-11-26 16:16:36 Chief Complaint Patient presents with Follow-up Follow up on weight management Diabetes Diabetic follow up Anxiety Follow up on anxiety. She states she feels fine. OTHER Renewal of handicap cece Siu MA II T Moon Siu MA, II [facility] 2023-11-18 12:59:54 Patient, Meghan Vazquez 58 year old Chief Complaint Patient presents with Hematuria Unspecified type Marian Sapp CMA I, 11/18/23 [facility] 2023-09-18 13:31:32 Chief Complaint Patient presents with Foot Pain Pt complain of foot pain on both feet. Pt is constantly on her feet. Her pain started on the top of her foot and travels to the bottom of her feet. [facility] 2023-09-02 15:08:32 Chief Complaint Patient presents with Follow-up Follow up on weight management Moon Siu MA II Moon Siu MA, II [facility] 2023-07-31 14:50:22 Chief Complaint Patient presents with Diabetes Diabetic follow up Moon Siu MA II Moon Siu MA, II [facility] 2023-07-02 15:09:17 Chief Complaint Patient presents with Follow-up Follow up on left foot pain and xray results. She states that now the right foot has been hurting as well. Pain medication is not working. REFILLS-NURSE/MD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
[2024-08-12] MEDS ORDERED: KETOROLAC 30 MG/ML INJ ONE (13:57)
--- NOTE | 2024-08-12 14:36 | RAD REPORT ---
Procedure: Chest Single View HISTORY: Chest pain COMPARISON: none FINDINGS: The lungs appear clear of acute infiltrate. No significant pleural effusion noted. The heart is normal size. IMPRESSION: No acute abnormality is displayed.
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
[2024-08-12 15:22] VITALS: TEMP 98.1
[2024-08-12 15:24] VITALS: BP 105/80; O2SAT 97
== END 2024-08-12 15:15 | disposition home or self-care (01) ==
LOC: ER 12:50
DX: S20.219A Contusion of unspecified front wall of thorax, initial encounter (principal); V29.408A Other motorcycle driver injured in collision with unspecified motor vehicles in traffic accident, initial encounter
CPT/HCPCS: 71045; 96372; 99284